=== PATIENT | female | born 1960 | race Caucasian/White ===

== ENCOUNTER 2018-05-28 19:05 | Emergency (ER) | payer OTHER ==
[2018-05-28 19:24] VITALS: RESP 18; TEMP 98.2
--- NOTE | 2018-05-28 20:00 | ED ---
General Adult HPI - General Chief complaint: Abdominal Pain Stated complaint: ABDOMINAL PAIN Source: patient Mode of arrival: ambulatory Limitations: no limitations - History of Present Illness Initial comments: Dictation was produced using Starvine dictation software. please excuse any grammatical, word or spelling errors. Chief Complaint: 57-year-old female past medical history migraines, degenerative disc disease, chronic back pain presents with 1 month of right- sided upper quadrant abdominal pain. History of Present Illness: Patient is a 57-year-old female with no significant comorbidities presents with chief complaint of right upper quadrant abdominal pain 1 month. She states that feels like a sharp pain in the right upper quadrant is worse with stretching. She denies any exacerbations with exertion. Denies any fever, chills or night sweats. No nausea or vomiting. She doesn' t state that eating makes her symptoms worse. No diarrhea. Patient is concerned about her gallbladder. Denies any constitutional symptoms. The ROS documented in this emergency department record has been reviewed and confirmed by me. Those systems with pertinent positive or negative responses have been documented in the HPI. All other systems are other negative and/or noncontributory. - Related Data Home Medications Medication Instructions Recorded Confirmed No Known Home Medications 05/28/18 05/28/18 Allergies Allergy/AdvReac Type Severity Reaction Status Date / Time latex Allergy Swelling Verified 05/28/18 20:19 Penicillins Allergy Swelling Verified 05/28/18 20:19 Review of Systems ROS Statement: Those systems with pertinent positive or pertinent negative responses have been documented in the HPI. ROS Other: All systems not noted in ROS Statement are negative. Past Medical History Additional Past Medical History / Comment(s): migraines, ddd, tinnitus, vaginal hemmorhage, back injury History of Any Multi-Drug Resistant Organisms: None Reported Past Surgical History: Section Additional Past Surgical History / Comment(s): hx of tmj, Past Anesthesia/Blood Transfusion Reactions: No Reported Reaction Past Psychological History: Anxiety, Depression Smoking Status: Former smoker Past Alcohol Use History: Rare Past Drug Use History: None Reported General Exam - General Exam Comments Initial Comments: PHYSICAL EXAM: General Impression: Alert and oriented x3, not in acute distress HEENT: Normocephalic atraumatic, extra-ocular movements intact, pupils equal and reactive to light bilaterally, mucous membranes moist. Cardiovascular: Heart regular rate and rhythm, S1&S2 audible, no murmurs, rubs or gallops Chest: Lungs clear to auscultation bilaterally, no rhonchi, no wheeze, no rales Abdomen: Bowel sounds present, abdomen soft, non-tender, non-distended, no organomegaly, negative Guerin sign, no right lower quadrant tenderness. Musculoskeletal: Pulses present and equal in all extremities, no peripheral edema Motor: Power 5/5 bilaterally, no focal deficits noted Neurological: CN II-XII grossly intact, no focal motor or sensory deficits noted Skin: Intact with no visualized rashes Psych: Normal affect and mood Limitations: no limitations Course Vital Signs 05/28/18 19:21 Temperature 98.2 F Pulse Rate 72 Respiratory 18 Rate Blood Pressure 151/86 O2 Sat by Pulse 96 Oximetry Medical Decision Making - Medical Decision Making ED course: 57-year-old female presents with chief complaint of right upper quadrant abdominal pain. Vital signs upon arrival are within acceptable limits. EKG interpretation: Ventricular rate 72, normal sinus rhythm, UT interval 156, QRS 80, QTC 420. No UT prolongation, no QTC prolongation, no ST. their solar manager T-wave inversions and one in aVL. Patient symptoms however are very atypical. There is very low clinical suspicion is these T-wave changes are acute.Abdomen evaluation obtained. CBC, cumbersome metabolic panel, urinalysis are unremarkable. Lipase is negative. Ultrasound of the abdomen shows no gallbladder pathology. Patient reevaluated and found to be in stable condition. Assurance provided. There is strong clinical suspicion that patient had strained her abdomen causing her symptoms given that is worse with movement. Patient told to follow-up with her primary care physician upon discharge. - Lab Data Result diagrams: 05/28/18 19:48 05/28/18 19:48 Lab Results 05/28/18 05/28/18 05/28/18 Range/Units 19:48 19:48 19:48 WBC 5.5 (3.8-10.6) k/uL RBC 4.51 (3.80-5.40) m/uL Hgb 13.7 (11.4-16.0) gm/dL Hct 41.0 (34.0-46.0) % MCV 91.0 (80.0-100.0) fL MCH 30.4 (25.0-35.0) pg MCHC 33.5 (31.0-37.0) g/dL RDW 13.0 (11.5-15.5) % Plt Count 212 (150-450) k/uL Neutrophils % 61 % Lymphocytes % 26 % Monocytes % 7 % Eosinophils % 3 % Basophils % 1 % Neutrophils # 3.3 (1.3-7.7) k/uL Lymphocytes # 1.4 (1.0-4.8) k/uL Monocytes # 0.4 (0-1.0) k/uL Eosinophils # 0.2 (0-0.7) k/uL Basophils # 0.1 (0-0.2) k/uL Sodium 143 (137-145) mmol/L Potassium 3.8 (3.5-5.1) mmol/L Chloride 109 H (98-107) mmol/L Carbon Dioxide 26 (22-30) mmol/L Anion Gap 8 mmol/L BUN 26 H (7-17) mg/dL Creatinine 0.85 (0.52-1.04) mg/dL Est GFR (CKD-EPI)AfAm 87 (>60 ml/min/1.73 sqM) Est GFR (CKD-EPI)NonAf 76 (>60 ml/min/1.73 sqM) Glucose 102 H (74-99) mg/dL Calcium 9.6 (8.4-10.2) mg/dL Total Bilirubin 0.4 (0.2-1.3) mg/dL AST 23 (14-36) U/L ALT 25 (9-52) U/L Alkaline Phosphatase 81 (38-126) U/L Troponin I <0.012 (0.000-0.034) ng/mL Total Protein 7.1 (6.3-8.2) g/dL Albumin 4.2 (3.5-5.0) g/dL Lipase 139 (23-300) U/L Urine Color Urine Appearance (Clear) Urine pH (5.0-8.0) Ur Specific [place] (1.001-1.035) Urine Protein (Negative) Urine Glucose (UA) (Negative) Urine Ketones (Negative) Urine Blood (Negative) Urine Nitrite (Negative) Urine Bilirubin (Negative) Urine Urobilinogen (<2.0) mg/dL Ur Leukocyte Esterase (Negative) Urine RBC (0-5) /hpf Urine WBC (0-5) /hpf Urine Mucus (None) /hpf 12/06/18 Range/Units 20:18 WBC (3.8-10.6) k/uL RBC (3.80-5.40) m/uL Hgb (11.4-16.0) gm/dL Hct (34.0-46.0) % MCV (80.0-100.0) fL MCH (25.0-35.0) pg MCHC (31.0-37.0) g/dL RDW (11.5-15.5) % Plt Count (150-450) k/uL Neutrophils % % Lymphocytes % % Monocytes % % Eosinophils % % Basophils % % Neutrophils # (1.3-7.7) k/uL Lymphocytes # (1.0-4.8) k/uL Monocytes # (0-1.0) k/uL Eosinophils # (0-0.7) k/uL Basophils # (0-0.2) k/uL Sodium (137-145) mmol/L Potassium (3.5-5.1) mmol/L Chloride (98-107) mmol/L Carbon Dioxide (22-30) mmol/L Anion Gap mmol/L BUN (7-17) mg/dL Creatinine (0.52-1.04) mg/dL Est GFR (CKD-EPI)AfAm (>60 ml/min/1.73 sqM) Est GFR (CKD-EPI)NonAf (>60 ml/min/1.73 sqM) Glucose (74-99) mg/dL Calcium (8.4-10.2) mg/dL Total Bilirubin (0.2-1.3) mg/dL AST (14-36) U/L ALT (9-52) U/L Alkaline Phosphatase (38-126) U/L Troponin I (0.000-0.034) ng/mL Total Protein (6.3-8.2) g/dL Albumin (3.5-5.0) g/dL Lipase (23-300) U/L Urine Color Yellow Urine Appearance Clear (Clear) Urine pH 5.5 (5.0-8.0) Ur Specific [place] 1.022 (1.001-1.035) Urine Protein Negative (Negative) Urine Glucose (UA) Negative (Negative) Urine Ketones Negative (Negative) Urine Blood Negative (Negative) Urine Nitrite Negative (Negative) Urine Bilirubin Negative (Negative) Urine Urobilinogen <2.0 (<2.0) mg/dL Ur Leukocyte Esterase Small H (Negative) Urine RBC 1 (0-5) /hpf Urine WBC 5 (0-5) /hpf Urine Mucus Many H (None) /hpf Disposition Clinical Impression: Abdominal pain Disposition: HOME SELF-CARE Instructions: Abdominal Pain (ED) Is patient prescribed a controlled substance at d/c from ED?: No Referrals: Sherry Simpson MD [Primary Care Provider] - 1-2 days Time of Disposition: 22:02
[2018-05-28 20:06] LABS: Basophils # (A) 0.1 k/uL (0-0.2); Basophils % (A) 1 %; Eosinophils # (A) 0.2 k/uL (0-0.7); Eosinophils % (A) 3 %; HGB 13.7 gm/dL (11.4-16.0); Lymphocytes # (A) 1.4 k/uL (1.0-4.8); Lymphocytes % (A) 26 %; MCH 30.4 pg (25.0-35.0); MCHC 33.5 g/dL (31.0-37.0); Mean Platelet Volume 8.5; Monocytes # (A) 0.4 k/uL (0-1.0); Monocytes % (A) 7 %; Neutrophils # (A) 3.3 k/uL (1.3-7.7); Neutrophils % (A) 61 %; Platelet Count 212 k/uL (150-450); RBC 4.51 m/uL (3.80-5.40); WBC 5.5 k/uL (3.8-10.6)
[2018-05-28 20:16] LABS: Albumin 4.2 g/dL (3.5-5.0); Calcium 9.6 mg/dL (8.4-10.2); Potassium 3.8 mmol/L (3.5-5.1); Total Bilirubin 0.4 mg/dL (0.2-1.3); Total Protein 7.1 g/dL (6.3-8.2)
[2018-05-28 20:35] LABS: Appearance,Urine Clear (Clear); Bilirubin,Urine Negative (Negative); Blood,Urine Negative (Negative); Color,Urine Yellow; Glucose,Urine (UA) Negative (Negative); Ketones,Urine Negative (Negative); Leukocyte Esterase,Urine Small (Negative); Mucus,Urine Many /hpf; Nitrite,Urine Negative (Negative); PH, Urine 5.5 (5.0-8.0); Protein,Urine Negative (Negative); RBC,Urine 1 /hpf (0-5); Specific Gravity,Urine 1.022 (1.001-1.035); Urobilinogen,Urine <2.0 mg/dL (<2.0); WBC,Urine 5 /hpf (0-5)
--- NOTE | 2018-05-28 21:45 | US ---
EXAMINATION TYPE: US abdomen complete DATE OF EXAM: 05/28/2018 COMPARISON: NONE CLINICAL HISTORY: abdominal pain. Pain EXAM MEASUREMENTS: Liver Length: 13.5 cm Gallbladder Wall: 0.3 cm CBD: 0.4 cm Spleen: 7.7 cm Right Kidney: 10.7 x 3.7 x 4.0 cm Left Kidney: 10.3 x 5.6 x 3.1 cm Pancreas: Tail obscured by overlying bowel gas Liver: wnl Gallbladder: wnl Evidence for sonographic Guerin's sign: No CBD: wnl Spleen: Limited due to rib shadowing Right Kidney: wnl Left Kidney: wnl Upper IVC: wnl Abd Aorta: wnl IMPRESSION: No acute sonographic process.
[2018-05-28 22:29] VITALS: BP 115/81; PULSE 88
== END 2018-05-28 22:00 | disposition home or self-care (01) ==
LOC: EC 19:05
DX: R10.11 Right upper quadrant pain (principal); Z87.891 Personal history of nicotine dependence; Z88.0 Allergy status to penicillin; Z91.040 Latex allergy status
CPT/HCPCS: 36415; 76700; 80053; 81001; 83690; 84484; 85025; 93005; 99284

== ENCOUNTER 2018-10-02 07:16 | Emergency (ER) | payer OTHER ==
[2018-10-02 07:30] VITALS: BP 149/82; PULSE 81; TEMP 98
[2018-10-02 07:50] VITALS: RESP 16
--- NOTE | 2018-10-02 07:52 | ED ---
URI HPI - General Chief Complaint: Upper Respiratory Infection Stated Complaint: Congestion Time Seen by Provider: 10/02/18 07:33 Source: patient, RN notes reviewed Mode of arrival: ambulatory Limitations: no limitations - History of Present Illness Initial Comments: This is a 4-year-old female who presents with complaints of 2 days of cough of yellow-green phlegm also sore throat she believes she may have strep. She has had rhinorrhea. She however does state that she's had no fevers chills or sweats. No other complaints or modifying factors she is a former smoker but states she does not smoke anymore. MD Complaint: cough, rhinorrhea, nasal congestion, other - Related Data Home Medications Medication Instructions Recorded Confirmed Naproxen 500 mg PO Q6H PRN 10/02/18 10/02/18 Previous Rx's Medication Instructions Recorded Ibuprofen [Motrin] 600 mg PO Q6HR PRN #20 tab 10/02/18 guaiFENesin [Mucinex] 600 mg PO BID #14 tab.er.12h 10/02/18 Allergies Allergy/AdvReac Type Severity Reaction Status Date / Time latex Allergy Swelling Verified 10/02/18 07:56 Penicillins Allergy Swelling Verified 10/02/18 07:56 Review of Systems ROS Statement: Those systems with pertinent positive or pertinent negative responses have been documented in the HPI. ROS Other: All systems not noted in ROS Statement are negative. Past Medical History Additional Past Medical History / Comment(s): migraines, ddd, tinnitus, vaginal hemmorhage, back injury History of Any Multi-Drug Resistant Organisms: None Reported Past Surgical History: Section Additional Past Surgical History / Comment(s): hx of tmj, Past Anesthesia/Blood Transfusion Reactions: No Reported Reaction Past Psychological History: Anxiety, Depression Smoking Status: Former smoker Past Alcohol Use History: Rare Past Drug Use History: None Reported General Exam - General Exam Comments Initial Comments: This a well-developed well-nourished awake alert oriented 3 female Limitations: no limitations General appearance: alert, in no apparent distress Head exam: Present: atraumatic, normocephalic, normal inspection Eye exam: Present: normal appearance, PERRL, EOMI. Absent: scleral icterus, conjunctival injection, periorbital swelling ENT exam: Present: mucous membranes moist, other (Posterior pharyngeal hyperemia with some evidence of exudate in the right tonsillar pillar) Neck exam: Present: normal inspection, full ROM, other (No stridor JVD or bruits). Absent: tenderness, meningismus, lymphadenopathy Respiratory exam: Present: normal lung sounds bilaterally. Absent: respiratory distress, wheezes, rales, rhonchi, stridor Cardiovascular Exam: Present: regular rate, normal rhythm, normal heart sounds. Absent: systolic murmur, diastolic murmur, rubs, gallop, clicks GI/Abdominal exam: Absent: distended, tenderness, guarding, rebound, rigid Extremities exam: Present: normal inspection, full ROM, normal capillary refill. Absent: tenderness, pedal edema, joint swelling, calf tenderness Back exam: Present: normal inspection Neurological exam: Present: alert, oriented X3, CN II-XII intact Psychiatric exam: Present: normal affect, normal mood Skin exam: Present: warm, dry, intact, normal color. Absent: rash Course Vital Signs 10/02/18 10/02/18 07:26 07:37 Temperature 98.0 F Pulse Rate 81 Respiratory 18 16 Rate Blood Pressure 149/82 O2 Sat by Pulse 95 Oximetry Medical Decision Making - Medical Decision Making I did discuss the findings with the patient the presentation consistent with a viral etiology. She'll be placed on symptomatic care. No antibiotics are indicated at this time - Lab Data Lab Results 10/02/18 10/02/18 Range/Units 07:45 07:45 Influenza Type A RNA Not Detected (Not Detectd) Influenza Type B (PCR) Not Detected (Not Detectd) Group A Strep Rapid Negative (Negative) - Radiology Data Radiology results: report reviewed (I did review the imaging and report no acute findings), image reviewed Disposition Clinical Impression: Pharyngitis, Tracheobronchitis Disposition: HOME SELF-CARE Condition: Good Instructions (If sedation given, give patient instructions): Acute Bronchitis (ED), Pharyngitis (ED), Viral Syndrome (ED) Prescriptions: Ibuprofen [Motrin] 600 mg PO Q6HR PRN #20 tab PRN Reason: Pain guaiFENesin [Mucinex] 600 mg PO BID #14 tab.er.12h Is patient prescribed a controlled substance at d/c from ED?: No Referrals: None,Stated [Primary Care Provider] - 1-2 days
--- NOTE | 2018-10-02 08:07 | XR ---
EXAMINATION TYPE: XR chest 2V DATE OF EXAM: 10/02/2018 COMPARISON: NONE HISTORY: Congestion and sore throat for 2 days TECHNIQUE: Frontal and lateral views of the chest are obtained. FINDINGS: There is no focal air space opacity, pleural effusion, or pneumothorax seen. The cardiac silhouette size is within normal limits. The osseous structures are intact. IMPRESSION: No acute cardiopulmonary process.
== END 2018-10-02 09:09 | disposition home or self-care (01) ==
LOC: EC 07:16
DX: J40 Bronchitis, not specified as acute or chronic (principal); J02.9 Acute pharyngitis, unspecified; Z87.891 Personal history of nicotine dependence; Z88.0 Allergy status to penicillin; Z91.040 Latex allergy status
CPT/HCPCS: 71046; 87081; 87430; 87502; 99283

== ENCOUNTER 2019-06-27 21:26 | Inpatient (IN) | payer MEDICAID, OTHER ==
[2019-06-27] MEDS ORDERED: LORazepam 2 MG/ML INJ IV STA (22:31)
[2019-06-27] MEDS ORDERED: diphenhydrAMINE 50 MG/ML 1 ML VIAL IVP STA (22:43)
--- NOTE | 2019-06-27 22:56 | ED ---
General Adult HPI - General Chief complaint: Skin/Abscess/Foreign Body Stated complaint: Rash Time Seen by Provider: 06/27/19 21:40 Source: patient Mode of arrival: ambulatory Limitations: no limitations - History of Present Illness Initial comments: Zina is a 59-year-old female who presents to the emergency department today for reported evaluation of her rash on her chest. She reports she's had this rash for over a week and has tried treating it with [id number] medications including eczema cream and zinc. Patient states the rash is due to stress. Patient states she is very stressed over her phones being tapped, her phone wires being cut despite the fact that she uses a cell phone. Inability to contact people due to her phone being cut and being told not to speak over her cell phone because it is tapped. Patient states that her people working in her neighborhood to what denies things and action in her neighborhood. She states she is just sick over the stressed about all of this. She attempted to tell me something about the stress over her [place] and [place] and how he was in [place] for a period time she believes something tragic Him in [place] she is not certain what she hasn't spoken to him in a period of time she's concerned about fundamentalist [facility] brainwashing him. - Related Data Home Medications Medication Instructions Recorded Confirmed Naproxen 500 mg PO Q6H PRN 10/02/18 10/02/18 Previous Rx's Medication Instructions Recorded Ibuprofen [Motrin] 600 mg PO Q6HR PRN #20 tab 10/02/18 guaiFENesin [Mucinex] 600 mg PO BID #14 tab.er.12h 10/02/18 Allergies Allergy/AdvReac Type Severity Reaction Status Date / Time latex Allergy Swelling Verified 06/27/19 21:37 Penicillins Allergy Swelling Verified 06/27/19 21:37 Review of Systems ROS Statement: Those systems with pertinent positive or pertinent negative responses have been documented in the HPI. ROS Other: All systems not noted in ROS Statement are negative. Past Medical History Additional Past Medical History / Comment(s): migraines, ddd, tinnitus, vaginal hemmorhage, back injury History of Any Multi-Drug Resistant Organisms: None Reported Past Surgical History: Section Additional Past Surgical History / Comment(s): hx of tmj, Past Anesthesia/Blood Transfusion Reactions: No Reported Reaction Past Psychological History: Anxiety, Depression Smoking Status: Former smoker Past Alcohol Use History: Rare Past Drug Use History: None Reported General Exam - General Exam Comments Initial Comments: Physical Exam GENERAL: Patient is well-developed and well-nourished. Patient is nontoxic and well-hydrated and is in no distress. HENT: Normocephalic, Atraumatic. EYES: PERRL, EOMI PULMONARY: Unlabored respirations. CARDIOVASCULAR: RRR Warm and well perfused extremities ABDOMEN: Non-distended SKIN: Excoriations over the chest consistent with scratching : Deferred NEUROLOGIC: Alert and oriented Normal speech Normal gait MUSCULOSKELETAL: Moving all extremities with no apparent injury PSYCHIATRIC: Patient appears to be acutely psychotic she has rapid pressured speech, flight of ideas some paranoid ideas Limitations: no limitations Course Vital Signs 06/27/19 21:34 Temperature 98 F Pulse Rate 108 H Respiratory 20 Rate Blood Pressure 185/98 O2 Sat by Pulse 97 Oximetry Medical Decision Making - Medical Decision Making She was seen and evaluated, upon initial evaluation it appears the patient is acutely paranoid and psychotic Patient was petitioned by nursing Labs for medical clearance were ordered and patient was treated with topical steroid cream for her rash on her chest Patient did become agitated and attempted to walk out of the hospital however was encouraged that she is going to require inpatient psychiatric evaluation and was able to be redirected back to her room without being restrained though she was quite upset. Patient was evaluated by EPS who agree that the patient warrants inpatient psychiatric care at this time. Patient a answered to the psychiatric floor. - Lab Data Result diagrams: 06/27/19 23:45 06/27/19 23:45 Lab Results 06/27/19 06/27/19 Range/Units 23:45 23:45 WBC 7.2 (3.8-10.6) k/uL RBC 4.19 (3.80-5.40) m/uL Hgb 13.2 (11.4-16.0) gm/dL Hct 39.5 (34.0-46.0) % MCV 94.2 (80.0-100.0) fL MCH 31.5 (25.0-35.0) pg MCHC 33.4 (31.0-37.0) g/dL RDW 13.0 (11.5-15.5) % Plt Count 253 (150-450) k/uL Neutrophils % 50 % Lymphocytes % 33 % Monocytes % 7 % Eosinophils % 6 % Basophils % 1 % Neutrophils # 3.6 (1.3-7.7) k/uL Lymphocytes # 2.4 (1.0-4.8) k/uL Monocytes # 0.5 (0-1.0) k/uL Eosinophils # 0.4 (0-0.7) k/uL Basophils # 0.1 (0-0.2) k/uL Sodium 142 (137-145) mmol/L Potassium 3.4 L (3.5-5.1) mmol/L Chloride 109 H (98-107) mmol/L Carbon Dioxide 23 (22-30) mmol/L Anion Gap 10 mmol/L BUN 20 H (7-17) mg/dL Creatinine 0.90 (0.52-1.04) mg/dL Est GFR (CKD-EPI)AfAm 80 (>60 ml/min/1.73 sqM) Est GFR (CKD-EPI)NonAf 70 (>60 ml/min/1.73 sqM) Glucose 138 H (74-99) mg/dL Calcium 9.6 (8.4-10.2) mg/dL Total Bilirubin 0.4 (0.2-1.3) mg/dL AST 31 (14-36) U/L ALT 19 (4-34) U/L Alkaline Phosphatase 128 H (38-126) U/L Total Protein 7.5 (6.3-8.2) g/dL Albumin 4.6 (3.5-5.0) g/dL Salicylates <1.0 mg/dL Acetaminophen <10.0 ug/mL Serum Alcohol <10 mg/dL Disposition Clinical Impression: Psychosis Disposition: TRANSFER TO PSYCH HOSP/UNIT Condition: Stable Is patient prescribed a controlled substance at d/c from ED?: No
[2019-06-27] MEDS: TRIAMCINOLONE 0.1% CREAM 80 GM TUBE TOPICAL SCH (23:47)
[2019-06-28] LABS: ALT 19 U/L (4-34); AST 31 U/L (14-36); Acetaminophen <10.0 ug/mL; African American GFR (CKD) 80 (>60 ml/min/1.73 sqM); Albumin 4.6 g/dL (3.5-5.0); Alcohol <10 mg/dL; Alkaline Phosphatase 128 U/L (38-126); Anion Gap 10 mmol/L; Blood Urea Nitrogen 20 mg/dL (7-17); Calcium 9.6 mg/dL (8.4-10.2); Carbon Dioxide 23 mmol/L (22-30); Chloride 109 mmol/L (98-107); Glucose 138 mg/dL (74-99); Non-African American GFR(CKD) 70 (>60 ml/min/1.73 sqM); Potassium 3.4 mmol/L (3.5-5.1); Salicylate <1.0 mg/dL; Sodium 142 mmol/L (137-145); Total Bilirubin 0.4 mg/dL (0.2-1.3); Total Protein 7.5 g/dL (6.3-8.2)
[2019-06-28 00:07] LABS: Basophils # (A) 0.1 k/uL (0-0.2); Basophils % (A) 1 %; Eosinophils # (A) 0.4 k/uL (0-0.7); Eosinophils % (A) 6 %; HCT 39.5 % (34.0-46.0); HGB 13.2 gm/dL (11.4-16.0); Lymphocytes # (A) 2.4 k/uL (1.0-4.8); Lymphocytes % (A) 33 %; MCH 31.5 pg (25.0-35.0); MCHC 33.4 g/dL (31.0-37.0); MCV 94.2 fL (80.0-100.0); Mean Platelet Volume 9.1; Monocytes # (A) 0.5 k/uL (0-1.0); Monocytes % (A) 7 %; Neutrophils # (A) 3.6 k/uL (1.3-7.7); Neutrophils % (A) 50 %; Platelet Count 253 k/uL (150-450); RBC 4.19 m/uL (3.80-5.40); WBC 7.2 k/uL (3.8-10.6)
[2019-06-28] MEDS ORDERED: diphenhydrAMINE 50 MG/ML 1 ML VIAL IVP STA (00:10)
[2019-06-28] MEDS ORDERED: ZIPRASIDONE 20 MG VIAL IM PRN (04:48)
[2019-06-28] MEDS ORDERED: LORazepam 2 MG/ML INJ IM PRN (05:51)
[2019-06-28] MEDS: TRIAMCINOLONE 0.1% CREAM 80 GM TUBE TOPICAL SCH ×3 (09:44→22:16)
[2019-06-28] MEDS ORDERED: POTASSIUM CHLORIDE ER 20 MEQ TAB.ER PO STA (16:03)
--- NOTE | 2019-06-28 16:04 | P.CONS ---
History of Present Illness - Reason for Consult Consult date: 06/28/19 - History of Present Illness The patient is a 59 yo F with a PMH of chronic LBP and fibromyalgia presented to the ED w/ complaints of a rash on her chest. She reported minimal improvements in her rash with OTC creams including hydrocortisone. While in the ED, the patient was noted to be paranoid, was petitioned by the nursing staff and was admitted to the mental health unit for further monitoring. The patient was seen in the mental health unit at the bedside earlier today. The patient had significantly pressured speech and was difficult to redirect. She however endorsed this rash on her chest which she believes is linked to her stress. She noted that there is a conspiracy of physicians who are trying to keep her in poverty and that she is simply worried about her son who had traveled to [place] to live with his in-laws and she believes that something terrible is happening to him since she has not heard from them in a while. She noted that rash is somewhat pruritic, but not painful. She otherwise denied chest pain, shortness of breath, nausea, vomiting, fever, chills, abdominal pain, dizziness, or heada ches. Review of Systems Pertinent positives and negatives as discussed in HPI, a complete review of systems was performed and all other systems are negative. Past Medical History Additional Past Medical History / Comment(s): migraines, ddd, tinnitus, vaginal hemmorhage, back injury History of Any Multi-Drug Resistant Organisms: None Reported Past Surgical History: Section Additional Past Surgical History / Comment(s): hx of tmj, Past Anesthesia/Blood Transfusion Reactions: No Reported Reaction Past Psychological History: Anxiety, Depression Smoking Status: Former smoker Past Alcohol Use History: Rare Past Drug Use History: None Reported Medications and Allergies Home Medications Medication Instructions Recorded Confirmed Type Ibuprofen [Motrin] 600 mg PO Q6HR PRN #20 tab 10/02/18 Rx Naproxen 500 mg PO Q6H PRN 10/02/18 10/02/18 History guaiFENesin [Mucinex] 600 mg PO BID #14 tab.er.12h 10/02/18 Rx Allergies Allergy/AdvReac Type Severity Reaction Status Date / Time latex Allergy Swelling Verified 06/27/19 21:37 Penicillins Allergy Swelling Verified 06/27/19 21:37 Physical Exam Vitals: Vital Signs Temp Pulse Resp BP Pulse Ox 06/27/19 21:34 98 F 108 H 20 185/98 97 General: non toxic, no distress, appears at stated age, normal weight Derm: Dry and mildly hyperkeratotic rash overlying patient's chest with some erythematous areas, no unusual ecchymoses, warm, dry Head: atraumatic, normocephalic, symmetric Eyes: EOMI, no lid lag, anicteric sclera, pupils equal round reactive to light ENT: Nose and ears atraumatic, no thrush, no pharyngeal erythema Neck: No thyromegaly, no cervical lymphadenopathy, trachea midline, supple Mouth: no lip lesion, mucus membranes moist Cardiovascular: S1S2 reg, no murmur, positive posterior tibial pulse bilateral, no edema, capillary refill less than 2 seconds Lungs: CTA bilateral, no rhonchi, no rales , no accessory muscle use Abdominal: soft, nontender to palpation, no guarding, no appreciable organomegaly, normal bowel sounds Ext: no gross muscle atrophy, muscle strength 5 out of 5 in all 4 extremities grossly, no contractures, Neuro: CN II-XI grossly intact, light touch intact all 4 extremities, finger to nose within normal limits, Psych: Awake, alert, very pressured speech with flight of ideas and tangentiality, difficult to redirect Results CBC & Chem 7: 06/27/19 23:45 06/27/19 23:45 Labs: Abnormal Lab Results - Last 24 Hours (Table) 06/27/19 Range/Units 23:45 Potassium 3.4 L (3.5-5.1) mmol/L Chloride 109 H (98-107) mmol/L BUN 20 H (7-17) mg/dL Glucose 138 H (74-99) mg/dL Alkaline Phosphatase 128 H (38-126) U/L Assessment and Plan Plan: Rash overlying chest, likely eczematous -Continue with Kenalog cream Psychosis with paranoia -As per psychiatry Hypokalemia -Replace and monitor Hyperglycemia -Obtain A1c Elevated alkaline phosphatase -Unknown etiology -Repeat in a.m. Thank you for allowing us to participate in the care of this patient. We will follow peripherally. Do not hesitate to contact us with questions. Someone can be reached from the [facility] hospitalist group at all hours of the day at [phone].
[2019-06-28] MEDS: LORazepam 1 MG TAB PO PRN (16:59)
[2019-06-29] MEDS: ACETAMINOPHEN TAB 325 MG TAB PO PRN (01:41)
[2019-06-29] MEDS: TRIAMCINOLONE 0.1% CREAM 80 GM TUBE TOPICAL SCH ×2 (08:37→21:59)
--- NOTE | 2019-06-29 15:04 | P.PN ---
Subjective Progress Note Date: 06/29/19 Principal diagnosis: Bipolar disorder manic without psychotic features I reviewed the medical record, interviewed the patient and discussed her treatment and treatment plan during team meeting. I met with her this morning for approximately 60 minutes. She was hyperverbal. Her speech was so pressured that I was unable to interrupt her. She perseverated on several themes but refused to clarify her concerns. She feels that this hospitalization is unnecessary and inappropriate. She contests my diagnosis of bipolar illness and she flatly refused to take a mood stabilizer. She is concerned about her son and her family. When I asked about the circumstances she replied that is is "legal" and none of my business. 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 Objective - Vital Signs Vital signs: Vital Signs Temp 96.9 F L 06/29/19 03:18 Pulse 96 06/29/19 03:18 Resp 16 06/29/19 03:18 BP 136/80 06/29/19 03:18 Pulse Ox 98 06/29/19 03:18 - Exam She presented as a casually groomed thin elderly woman who was irritable and angry. She had a distressed facial expression. She was able sit throughout the interview. Her speech was rapid and at times slurred. Her affect was irritable. She did not express suicidal ideation, wishes or homicidal ideation. She feels helpless over this involuntary hospitalization but denied feelings of worthlessness or hopelessness. She expressed some overvalued ideas and paranoia about her family and her living circumstances. She would jump from topic to topic where I was unable to understand and transition in her conversation. She did not express clang associations or neologisms. She denied hallucinations and did not appear to be responding to internal stimuli - Labs CBC & Chem 7: 06/27/19 23:45 06/27/19 23:45 Assessment and Plan Assessment: She continues demonstrate signs and symptoms of christel and hypomania including pressured speech, flight of ideas, over valued ideas of her talents and paranoia. She has no insight or understanding of her illness and is refusing psychiatric treatment. Plan: Proceed with involuntary hospitalization. Continue safety precautions. Encourage continued participation and multimodal therapy. Evaluate clinical status response to treatment daily basis. Continue discuss of her diagnosis and need for treatment with a mood stabilizer. Continue Ativan and Geodon for anxiety and/or agitation.
[2019-06-29] MEDS: LORazepam 1 MG TAB PO PRN (15:21)
--- NOTE | 2019-06-30 08:01 | P.HP ---
Psychiatric H&P - . H&P Date: 06/28/19 History & Physical: IDENTIFYING DATA: The patient was 59-year-old female admitted involuntarily to the psychiatric unit. HISTORY OF PRESENT ILLNESS: She presented to the emergency room on 06/27/2019 with complaints of a rash. During her evaluation she told the emergency room physician that she was "very stressed" over her phone is being tapped, her phone wires being cut despite the fact that she uses a cell phone. She made other unusual statements and was referred for an evaluation by the EPS nurse. The EPS nurse described her as manic, paranoid and demonstrating pressured speech. An emergency and groomed nurse completed the petition that alleged she was not dressed appropriately for the weather, having paranoid ideations and believes that her phone was "being listened to". She initially refused to speak with me. She told me that she would only speak with her district attorney. Later in the day, she came to my room acutely agitated, angry and complaining about the involuntary admission. Her speech was so pressured, tangential and circumstantial but I could not obtain a comprehensive history. She expressed several paranoid and apparent grandiose ideas and beliefs. She talked about owning multiple cell phones because the phones and her repeatedly being "tapped." She is distressed about her son with whom she has had no contact for an unspecified period of time and in the context of talking about her son also made reference to a "conspiracy". She argued against my opinion that she has a bipolar illness and is currently manic. She declined my recommendation to start a medication to treat her bipolar illness. She alleged that she has been treated with "those medicines" for 8 years without benefit. She would only agree to take a benzodiazepine for her self diagnosed anxiety. PAST PSYCHIATRIC HISTORY: She would not answer questions about her past medical history but alluded to having had [facility]. She had met with a private psychiatrist in the past who had treated her for a bipolar illness. She was admitted to this facility twice in 2014 back to back. The second hospitalization was extensive and lasted nearly 2 months PAST MEDICAL HISTORY: Reported history of back pain and chronic neck pain ALLERGIES: Latex penicillins SUBSTANCE USE HISTORY: She denied history of substance use problems FAMILY PSYCHIATRIC/SUBSTANCE USE HISTORY: She did not answer questions about a family history of mental illness LEGAL HISTORY: She talked about having been involved in multiple legal suits apparently related to her 's estate. SOCIAL HISTORY: She is currently unemployed and receives social security disability. She lives in an apartment in a "bad neighborhood" in [facility]. She talked about having her in several bachelor's degrees and received a master's degree. She is for unspecified time. Her is . 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 MENTAL STATUS EXAM: She presented as a thin and pale appearing 59-year-old female who is irritable. She made eye contact and did not attend to the interview. She had no prominent physical abnormalities. She had a distressed facial expression. She showed no abnormality of psychomotor activity. She had a steady gait. Her speech was spontaneous with increased rate, volume and rhythm. She showed pressured speech she was hyperverbal. Her affect was irritable and labile. She denied suicidal ideation or wishes. She denied homicidal ideation. She did not express such depressive cognitions as hopelessness, helplessness or worthlessness. She ruminated about the circumstances that led to this admission, her financial situation, her son, and her living circumstances. She expressed fragmented paranoid ideation and grandiose beliefs. Her thinking was abstract and associations were at times not fully coherent. She did not demonstrate clang associations or neologisms. She denied hallucinations and did not appear to be responding to internal stimuli. Global impression of intellect is above average. She has no awareness or understanding of her illness or need for mental health treatment. STRENGTHS: Good physical health, stable housing, stable income WEAKNESSES: Lack of family support, lack of understanding of her mental illness IMPRESSION:. She is 59-year-old female who has history of bipolar illness. She presented with signs and symptoms of acute christel. She expresses several fragmented paranoid delusional beliefs and thoughts. She denies that she has a mental illness, denies that she has a bipolar illness and denies need for mental health treatment. She would benefit from continue inpatient treatment that included antimanic medications. She is unwilling to sign voluntary admission. PRINCIPLE DIAGNOSIS: Bipolar disorder most recent episode manic with psychotic features RECOMMENDATION: Continue with inpatient hospitalization. Completed the second clinical certificate and [place] the application was supporting documents to probate Court for involuntary hospitalization. Encourage participation and multimodal therapy. Safety precautions. Continue discussions about need for treatment with mood stabilizing medication. Geodon 20 mg IM twice a day when necessary for agitation or aggression. Ativan 1 mg by mouth 3 times a day when necessary for anxiety or restlessness and Ativan 1 mg IM every 6 hours when necessary for agitation. Allergies Allergy/AdvReac Type Severity Reaction Status Date / Time latex Allergy Swelling Verified 06/27/19 21:37 Penicillins Allergy Swelling Verified 06/27/19 21:37 Vital Signs Temp 98 F 06/27/19 21:34 Pulse 108 H 06/27/19 21:34 Resp 20 06/27/19 21:34 BP 185/98 06/27/19 21:34 Pulse Ox 97 06/27/19 21:34 Intake & Output 06/27/19 06/28/19 06/28/19 18:59 06:59 18:59 Weight 71.305 kg Laboratory Last Values WBC 7.2 k/uL (3.8-10.6) 06/27/19 23:45 RBC 4.19 m/uL (3.80-5.40) 06/27/19 23:45 Hgb 13.2 gm/dL (11.4-16.0) 06/27/19 23:45 Hct 39.5 % (34.0-46.0) 06/27/19 23:45 MCV 94.2 fL (80.0-100.0) 06/27/19 23:45 MCH 31.5 pg (25.0-35.0) 06/27/19 23:45 MCHC 33.4 g/dL (31.0-37.0) 06/27/19 23:45 RDW 13.0 % (11.5-15.5) 06/27/19 23:45 Plt Count 253 k/uL (150-450) 06/27/19 23:45 Neutrophils % 50 % 06/27/19 23:45 Lymphocytes % 33 % 06/27/19 23:45 Monocytes % 7 % 06/27/19 23:45 Eosinophils % 6 % 06/27/19 23:45 Basophils % 1 % 06/27/19 23:45 Neutrophils # 3.6 k/uL (1.3-7.7) 06/27/19 23:45 Lymphocytes # 2.4 k/uL (1.0-4.8) 06/27/19 23:45 Monocytes # 0.5 k/uL (0-1.0) 06/27/19 23:45 Eosinophils # 0.4 k/uL (0-0.7) 06/27/19 23:45 Basophils # 0.1 k/uL (0-0.2) 06/27/19 23:45 Sodium 142 mmol/L (137-145) 06/27/19 23:45 Potassium 3.4 mmol/L (3.5-5.1) L 06/27/19 23:45 Chloride 109 mmol/L (98-107) H 06/27/19 23:45 Carbon Dioxide 23 mmol/L (22-30) 06/27/19 23:45 Anion Gap 10 mmol/L 06/27/19 23:45 BUN 20 mg/dL (7-17) H 06/27/19 23:45 Creatinine 0.90 mg/dL (0.52-1.04) 06/27/19 23:45 Est GFR (CKD-EPI)AfAm 80 (>60 ml/min/1.73 sqM) 06/27/19 23:45 Est GFR (CKD-EPI)NonAf 70 (>60 ml/min/1.73 sqM) 06/27/19 23:45 Glucose 138 mg/dL (74-99) H 06/27/19 23:45 Calcium 9.6 mg/dL (8.4-10.2) 06/27/19 23:45 Total Bilirubin 0.4 mg/dL (0.2-1.3) 06/27/19 23:45 AST 31 U/L (14-36) 06/27/19 23:45 ALT 19 U/L (4-34) 06/27/19 23:45 Alkaline Phosphatase 128 U/L (38-126) H 06/27/19 23:45 Total Protein 7.5 g/dL (6.3-8.2) 06/27/19 23:45 Albumin 4.6 g/dL (3.5-5.0) 06/27/19 23:45 Salicylates <1.0 mg/dL 06/27/19 23:45 Acetaminophen <10.0 ug/mL 06/27/19 23:45 Serum Alcohol <10 mg/dL 06/27/19 23:45 06/28/19 15:26
[2019-06-30] MEDS: TRIAMCINOLONE 0.1% CREAM 80 GM TUBE TOPICAL SCH ×2 (09:02→20:32)
--- NOTE | 2019-06-30 15:38 | P.PN ---
Subjective Progress Note Date: 06/30/19 Principal diagnosis: Bipolar disorder manic without psychotic features I reviewed the medical record, interviewed the patient and discussed her treatment and treatment plan during team meeting. She initially refused to speak with me. Later, she stormed into my office and told me that she "does not want to go over it again with you." There is no reason for her to remain in the hospital. She called her state attorney last night. She stated that she is "furious" and plans to call her insurance company to "cancel my insurance." She attended one therapeutic group yesterday. She slept 5 hours last night and 3 hours on Friday. Objective - Vital Signs Vital signs: Vital Signs Temp 96.9 F L 06/29/19 03:18 Pulse 96 06/29/19 03:18 Resp 16 06/29/19 03:18 BP 136/80 06/29/19 03:18 Pulse Ox 98 06/29/19 03:18 - Exam She presented as a disheveled appearing, thin elderly woman who was irritable and angry. She had a distressed facial expression. She would not sit for an interview Her speech was rapid and pressured. Her affect was irritable. She did not express suicidal ideation, wishes or homicidal ideation. She would jump from topic to topic where I was unable to understand and transition in her conversation. She did not express clang associations or neologisms. She denied hallucinations and did not appear to be responding to internal stimuli - Labs CBC & Chem 7: 06/27/19 23:45 06/27/19 23:45 Assessment and Plan Assessment: She continues demonstrate signs and symptoms of christel and hypomania including pressured speech, flight of ideas, over valued ideas of her talents and paranoia. She has no insight or understanding of her illness and is refusing psychiatric treatment. Plan: Proceed with involuntary hospitalization. Continue safety precautions. Encourage continued participation and multimodal therapy. Evaluate clinical status response to treatment daily basis. Continue discuss of her diagnosis and need for treatment with a mood stabilizer. Continue Ativan and Geodon for anxiety and/or agitation.
[2019-06-30 19:37] LABS: Hemoglobin A1C 5.1 % (4.0-6.0)
[2019-06-30] MEDS: LORazepam 1 MG TAB PO PRN (20:35)
[2019-07-01] MEDS: TRIAMCINOLONE 0.1% CREAM 80 GM TUBE TOPICAL SCH ×2 (08:03→20:56)
[2019-07-01 08:22] LABS: Albumin 4.5 g/dL (3.5-5.0); Calcium 9.7 mg/dL (8.4-10.2); Potassium 4.1 mmol/L (3.5-5.1); Total Bilirubin 0.8 mg/dL (0.2-1.3); Total Protein 7.4 g/dL (6.3-8.2)
[2019-07-01] MEDS: LORazepam 1 MG TAB PO PRN (09:20)
--- NOTE | 2019-07-01 12:31 | P.PN ---
Subjective Progress Note Date: 07/01/19 Principal diagnosis: Bipolar disorder manic without psychotic features I reviewed the medical record, interviewed the patient and discussed her treatment and treatment plan during team meeting. She is much less irritable today. I met with her for approximately 45 minutes. She remains hyperverbal and demonstrates marked flight of ideas. She was circumstantial and tangential. I could not interrupt her. She expressed concerns about her son and talked as though she believes there are some conspiracy by her in-laws to hide a possible illness. I asked several questions to understand but she never directly answered my questions. Her conversation jumped from several topics from her , her in-laws, her son, her past employments, difficulties finding employment, her experiences with [facility], her interactions with friends, legal difficulties, frustration with this hospitalization and conflict with her sister. She remains opposed to treatment with a mood stabilizing medication. Objective - Vital Signs Vital signs: Vital Signs Temp 98.0 F 07/01/19 06:33 Pulse 77 07/01/19 06:33 Resp 14 07/01/19 06:33 BP 141/74 07/01/19 06:33 Pulse Ox 98 06/29/19 03:18 - Exam She presented casually groomed, thin elderly woman who was pleasant. She had a distressed facial expression. Her speech was rapid and pressured. Her affect was irritable. She did not express suicidal ideation, wishes or homicidal ideation. She showed flight of ideas where she would jump from topic to topic where I was unable to understand or thought transition in her conversation. She did not express clang associations or neologisms. She denied hallucinations and did not appear to be responding to internal stimuli - Labs CBC & Chem 7: 06/27/19 23:45 07/01/19 07:30 Labs: Abnormal Lab Results - Last 24 Hours (Table) 07/01/19 Range/Units 07:30 BUN 29 H (7-17) mg/dL Assessment and Plan Assessment: She continues demonstrate signs and symptoms of christel and hypomania including pressured speech, and flight of ideas. Her comments about her and loss suggest some paranoia. She has no insight or understanding of her illness and is refusing psychiatric treatment. Plan: Probate hearing is scheduled for 07/07/2019. Continue safety precautions. Encourage continued participation and multimodal therapy. Evaluate clinical status response to treatment daily basis. Continue discuss of her diagnosis and need for treatment with a mood stabilizer. Continue Ativan and Geodon for anxiety and/or agitation.
[2019-07-02] MEDS: TRIAMCINOLONE 0.1% CREAM 80 GM TUBE TOPICAL SCH ×2 (10:47→20:02)
--- NOTE | 2019-07-02 14:09 | P.PN ---
Subjective Progress Note Date: 07/02/19 Principal diagnosis: Bipolar disorder manic without psychotic features I reviewed the medical record, interviewed the patient and discussed her treatment and treatment plan during team meeting. She initially approached be with upper respiratory complaints. She spent 40 minutes in my office talking nonstop. 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 She became increasingly angry and ended the interview telling me that she is enraged with me because I will not discharge her and insisted on her taking medications. She does not agree with my impression that she has a bipolar illness. She remains opposed to treatment with a mood stabilizing medication. Objective - Vital Signs Vital signs: Vital Signs Temp 98.0 F 07/01/19 06:33 Pulse 77 07/01/19 06:33 Resp 14 07/01/19 06:33 BP 141/74 07/01/19 06:33 Pulse Ox 98 06/29/19 03:18 - Exam She presented casually groomed, thin elderly woman who was pleasant. She had a distressed facial expression. Her speech was rapid and pressured. Her affect was irritable. She did not express suicidal ideation, wishes or homicidal ideation. She showed flight of ideas where she would jump from topic to topic w here I was unable to understand or thought transition in her conversation. She was circumstantial her answers to questions were tangential and digressive. She did not express clang associations or neologisms. She denied hallucinations and did not appear to be responding to internal stimuli - Labs CBC & Chem 7: 06/27/19 23:45 07/01/19 07:30 Assessment and Plan Assessment: She continues demonstrate signs and symptoms of christel and hypomania including pressured speech, and flight of ideas. She would benefit from a mood stabilizing medication either a second generation antipsychotic, Depakote, lithium or Lamictal. She has no insight or understanding of her illness and is refusing psychiatric treatment. Plan: Probate hearing is scheduled for 07/07/2019. Continue safety precautions. Encourage continued participation and multimodal therapy. Evaluate clinical status response to treatment daily basis. Continue discuss of her diagnosis and need for treatment with a mood stabilizer. Continue Ativan and Geodon for anxiety and/or agitation.
[2019-07-03] MEDS: TRIAMCINOLONE 0.1% CREAM 80 GM TUBE TOPICAL SCH ×3 (08:54→20:40)
[2019-07-03] MEDS: guaiFENesin 600 MG TABLET.ER PO PRN (11:11)
[2019-07-03] MEDS: LORazepam 1 MG TAB PO PRN ×2 (11:20→20:42)
--- NOTE | 2019-07-03 11:37 | P.PN ---
Progress Note - Text Progress Note Date: 07/03/19 Interval history: [facility] her At[facility] and was directable and agreeable to speak to her in the office. Patient continues to be hyperverbal, tangential and intrusive and displaying flight of ideas and also grandiosity in her statements. She spoke about being in the "inadequate place for treatment" and threatened to call the house superintendent and also to pull her insurance so that the hospital would not get paid. Patient spoke about being in research studies and how other doctors felt that she was "normal" and she did not need to be on medication. She states that she slept to the night with no complaints and has been going to groups however does not elaborate much on this. Patient is difficult to redirect in conversation and has poor judgment and insight. At this time patient denies any suicidal or homicidal ideations intent or plan. Denies any Auditory or visual hallucinations. patient refuses to be on any mood stabilizer or antipsychotic at this time. Mental status exam: General Appearance: Patient appears to be stated age is alert, directable ho wever patient is intrusive and argumentative.] wearing street clothing and carrying a book. Behavior: [No agitated behavior. Patient is directable however is argumentative and hostile with advertising copy writer. Speech: Patient's speech is fluent however is pressured. Mood/Affect: Mood is "fine", affect is incongruent and labile Suicidality/Homicidality: Patient denies having any suicidal or homicidal ideation intent or plan. Perceptions: Patient denies any auditory or visual hallucinations. Though content/process:flight of ideas, rambles and is tangential with loose associations. Memory and concentration: AOX3, grossly intact for the purposes of this session Judgment and insight: poor Assessment/Plan: continue with current assessment. Patient is labile, intrusive and grandiose and has poor judgment and insight and has a flight of ideas and hyperverbal and most likely in a manic episode. Patient continues to meet criteria for inpatient psychiatric admission for symptom stabilization and safety. patient is continuing to refuse any mood stabilizer or antipsychotic medication at this time and wants to wait for Court which is scheduled on 07/07/2019. Monitor for medication compliance and for any psychotropic medication side effects. Will continue to monitor ongoing response to treatment. encourage groups and participation in milieu.
[2019-07-04] MEDS: TRIAMCINOLONE 0.1% CREAM 80 GM TUBE TOPICAL SCH ×2 (08:00→21:07)
[2019-07-04] MEDS: LORazepam 1 MG TAB PO PRN ×2 (09:01→21:08)
[2019-07-04] MEDS: MAG HYDROX/AL HYDROX/SIMETH 30 ML CUP PO PRN (09:21)
--- NOTE | 2019-07-04 11:53 | P.PN ---
Progress Note - Text Progress Note Date: 07/04/19 Interval history: patient was seen near the nurse's desk and was directable and agreeable to speak to her in the office. Patient continues to be hyperverbal, tangential and intrusive. Patient was continuing to be loud and demanding with chief underwriter and has a flight of ideas and also grandiosity in her statements. She spoke of speaking with a "cash shortage investigator and the staff pharmacist hospital" and also states that chief underwriter is "running a residential". She states that she is agreeable only to take a low dose antidepressant and is not agreeable to take any other medications. Patient was offered Abilify however patient continues to refuse. She has poor reality testing and is impulsive. 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 She states that she slept to the night with no complaints. Patient is difficult to redirect in conversation and has poor judgment and insight and patient refused to leave the office and continued to yell at chief underwriter and make threatening statements. At this time patient denies any suicidal or homicidal ideations intent or plan. Denies any Auditory or visual hallucinations. Mental status exam: General Appearance: Patient appears to be stated age is alert, is intrusive and argumentative and hostile. wearing street clothing and carrying a book. Behavior: No agitated behavior. Patient is difficult to redirect however is argumentative and hostile with chief underwriter. Patient is intrusive and demanding. Speech: Patient's speech is fluent however is pressured. Mood/Affect: Mood is "fine", affect is incongruent and labile Suicidality/Homicidality: Patient denies having any suicidal or homicidal ideation intent or plan. Perceptions: Patient denies any auditory or visual hallucinations. Though content/process:flight of ideas, rambles and is tangential with loose associations. Memory and concentration: AOX3, grossly intact for the purposes of this session Judgment and insight: poor Assessment/Plan: continue with current assessment. Patient is continuing to be labile, demanding, intrusive and grandiose and has poor judgment and insight and has a flight of ideas and hyperverbal and most likely in a manic episode. Patient continues to meet criteria for inpatient psychiatric admission for symp sagrario stabilization and safety. patient is continuing to refuse any mood stabilizer or antipsychotic medication at this time and wants to wait for Court which is scheduled on 07/07/2019. Ordered Abilify 5 mg daily for mood stabilization/psychosis. Encouraged patient to take the medication and participate in milieu. Monitor for medication compliance and for any psychotropic medication side effects.
[2019-07-04] MEDS: ARIPiprazole 5 MG TAB PO SCH (14:41)
[2019-07-05] MEDS: TRIAMCINOLONE 0.1% CREAM 80 GM TUBE TOPICAL SCH ×2 (08:55→21:48)
[2019-07-05] MEDS: ARIPiprazole 5 MG TAB PO SCH (08:55)
--- NOTE | 2019-07-05 09:52 | P.PN ---
Subjective Progress Note Date: 07/05/19 The patient seen in the chart was reviewed. The case was discussed with the team. Patient continues to be labile and hyperverbal. The patient reports good sleep and appetite. She claims that she has no problems. The patient reports that "hysteria" brought her to the hospital and claims that has improved now. The patient continues to refuse medications and is asking for "a third opinion". Patient was offered Abilify however patient continues to refuse. She has poor reality testing and is impulsive. 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 She states that she slept to the night with no complaints. Patient is difficult to redirect in conversation and has poor judgment and insight and patient refused to leave the office and continued to yell at science writer and make threatening statements. At this time patient denies any suicidal or homicidal ideations intent or plan. Denies any Auditory or visual hallucinations. Objective - Vital Signs Vital signs: Vital Signs Temp 97.7 F 07/05/19 05:18 Pulse 78 07/05/19 05:18 Resp 16 07/05/19 05:18 BP 116/78 07/05/19 05:18 Pulse Ox 98 06/29/19 03:18 Intake & Output 07/04/19 07/05/19 07/05/19 18:59 06:59 18:59 Weight 68 kg - Exam Mental status exam: General Appearance: Patient appears to be stated age, she is alert. Behavior: No agitated behavior. Patient is difficult to redirect. Patient is intrusive and demanding. Speech: Patient's speech is fluent however is pressured and rapid. Mood/Affect: Mood is "fine", affect is incongruent and labile Suicidality/Homicidality: Patient denies having any suicidal or homicidal ideation intent or plan. Perceptions: Patient denies any auditory or visual hallucinations. Though content/process:flight of ideas, rambles and is tangential with loose associations. Memory and concentration: AOX3, grossly intact for the purposes of this session Judgment and insight: poor - Labs CBC & Chem 7: 06/27/19 23:45 07/01/19 07:30 Assessment and Plan Assessment: Bipolar disorder most recent episode manic with psychotic features Plan: Assessment/Plan: continue with current assessment. Patient is continuing to be labile, demanding, intrusive and grandiose and has poor judgment and insight and has a flight of ideas and hyperverbal and most likely in a manic episode. Patient continues to meet criteria for inpatient psychiatric admission for symptom stabilization and safety. patient is continuing to refuse any mood stabilizer or antipsychotic medication at this time and wants to wait for Court which is scheduled on 07/07/2019. Ordered Abilify 5 mg daily for mood stabilization/psychosis. Encouraged patient to take the medication and participate in milieu. Monitor for medication compliance and for any psychotropic medication side effects.
[2019-07-05] MEDS: LORazepam 1 MG TAB PO PRN (14:47)
[2019-07-06] MEDS: TRIAMCINOLONE 0.1% CREAM 80 GM TUBE TOPICAL SCH ×2 (08:44→21:03)
[2019-07-06] MEDS: ARIPiprazole 5 MG TAB PO SCH (08:45)
[2019-07-06 09:18] LABS: Basophils # (A) 0.1 k/uL (0-0.2); Basophils % (A) 1 %; Eosinophils # (A) 0.3 k/uL (0-0.7); Eosinophils % (A) 7 %; HCT 39.6 % (34.0-46.0); Lymphocytes # (A) 1.5 k/uL (1.0-4.8); Lymphocytes % (A) 37 %; MCH 31.1 pg (25.0-35.0); MCV 94.2 fL (80.0-100.0); Mean Platelet Volume 9.5; Monocytes # (A) 0.3 k/uL (0-1.0); Monocytes % (A) 6 %; Neutrophils # (A) 1.8 k/uL (1.3-7.7); Neutrophils % (A) 44 %; Platelet Count 210 k/uL (150-450); RDW 12.9 % (11.5-15.5); WBC 4.1 k/uL (3.8-10.6)
[2019-07-06 09:37] LABS: ALT 18 U/L (4-34); AST 25 U/L (14-36); African American GFR (CKD) >90 (>60 ml/min/1.73 sqM); Albumin 4.2 g/dL (3.5-5.0); Alkaline Phosphatase 79 U/L (38-126); Anion Gap 7 mmol/L; Blood Urea Nitrogen 19 mg/dL (7-17); Calcium 9.3 mg/dL (8.4-10.2); Carbon Dioxide 29 mmol/L (22-30); Chloride 106 mmol/L (98-107); Glucose 78 mg/dL (74-99); Non-African American GFR(CKD) 85 (>60 ml/min/1.73 sqM); Potassium 4.3 mmol/L (3.5-5.1); Sodium 142 mmol/L (137-145); Total Bilirubin 0.5 mg/dL (0.2-1.3); Total Protein 7.1 g/dL (6.3-8.2)
[2019-07-06] MEDS: LORazepam 1 MG TAB PO PRN ×2 (10:02→18:46)
--- NOTE | 2019-07-06 12:15 | P.PN ---
Subjective Progress Note Date: 07/06/19 The patient seen in the chart was reviewed. The case was discussed with the team. Patient continues to be paranoid and somewhat confused. Her speech remain hyperverbal and circumstantial. The patient reports good sleep and appetite. She claims that she has no problems and shows lack of insight into her illness. She is somatically focussed and paranoid. She is refusing her medications. She remain somewhat grandiose and persecutory. The patient continues to refuse medications and is asking for "a third opinion". Patient was offered Abilify however patient continues to refuse. She has poor reality testing and is impulsive. 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 Patient is difficult to redirect in conversation and has poor judgment and insight. At this time patient denies any suicidal or homicidal ideations intent or plan. Denies any Auditory or visual hallucinations. Objective - Vital Signs Vital signs: Vital Signs Temp 97.8 F 07/06/19 04:51 Pulse 77 07/06/19 09:15 Resp 16 07/06/19 09:15 BP 151/82 07/06/19 09:15 Pulse Ox 99 07/06/19 04:51 - Exam Mental status exam: General Appearance: Patient appears to be stated age, she is alert. Behavior: No agitated behavior. Patient is difficult to redirect. Patient is intrusive and demanding. Speech: Patient's speech is fluent however is pressured and rapid. Mood/Affect: Mood is "fine", affect is incongruent and labile Suicidality/Homicidality: Patient denies having any suicidal or homicidal ideation intent or plan. Perceptions: Patient denies any auditory or visual hallucinations. Though content/process:flight of ideas, rambles and is tangential with loose associations. Memory and concentration: AOX3, grossly intact for the purposes of this session Judgment and insight: poor - Labs CBC & Chem 7: 07/06/19 08:45 07/06/19 08:45 Labs: Abnormal Lab Results - Last 24 Hours (Table) 07/06/19 Range/Units 08:45 BUN 19 H (7-17) mg/dL Assessment and Plan Assessment: Bipolar disorder most recent episode manic with psychotic features Plan: Assessment/Plan: continue with current assessment. Patient is continuing to be labile, demanding, intrusive and grandiose and has poor judgment and insight and has a flight of ideas and hyperverbal and most likely in a manic episode. Patient continues to meet criteria for inpatient psychiatric admission for sym ptom stabilization and safety. patient is continuing to refuse any mood stabilizer or antipsychotic medication at this time and wants to wait for Court which is scheduled on 07/07/2019. Ordered Abilify 5 mg daily for mood stabilization/psychosis. Encouraged patient to take the medication and partic ipate in milieu. Monitor for medication compliance and for any psychotropic medication side effects.
[2019-07-06] MEDS: MAG HYDROX/AL HYDROX/SIMETH 30 ML CUP PO PRN (21:05)
[2019-07-07] MEDS: ARIPiprazole 5 MG TAB PO SCH (07:50)
[2019-07-07] MEDS: TRIAMCINOLONE 0.1% CREAM 80 GM TUBE TOPICAL SCH ×2 (07:50→20:12)
[2019-07-07] MEDS: LORazepam 1 MG TAB PO PRN ×2 (08:57→20:13)
--- NOTE | 2019-07-07 12:06 | P.PN ---
Subjective Progress Note Date: 07/07/19 The patient seen in the chart was reviewed. The case was discussed with the staff in the team meeting. The patient remained grandiose and paranoid. She has been alleging that she has worked in local "I decide why people are not getting better". The patient is a has been refusing medications. She has been asking for Ativan. The patient remains hyperverbal and has rambling and tangential speech which is difficult to redirect. The patient reports fair sleep and appetite. The patient denies any auditory or visual hallucinations but appears to be very preoccupied and somewhat argumentative. The patient denies any suicidal or homicidal ideations. The patient's court hearing was adjourn today by the court. Objective - Vital Signs Vital signs: Vital Signs Temp 97.8 F 07/06/19 04:51 Pulse 101 H 07/07/19 08:55 Resp 16 07/06/19 09:15 BP 153/90 07/07/19 08:55 Pulse Ox 99 07/06/19 04:51 Intake & Output 07/06/19 07/07/19 07/07/19 18:59 06:59 18:59 Weight 68 kg - Exam Mental status exam: General Appearance: Patient appears to be stated age, she is alert. Behavior: No agitated behavior. Patient is difficult to redirect. Patient is intrusive and demanding. Speech: Patient's speech is fluent however is pressured and rapid. Mood/Affect: Mood is "fine", affect is incongruent and labile Suicidality/Homicidality: Patient denies having any suicidal or homicidal ideation intent or plan. Perceptions: Patient denies any auditory or visual hallucinations. Though content/process:flight of ideas, rambles and is tangential with loose associations. Memory and concentration: AOX3, grossly intact for the purposes of this session Judgment and insight: poor - Labs CBC & Chem 7: 07/06/19 08:45 07/06/19 08:45 Assessment and Plan Assessment: Bipolar disorder most recent episode manic with psychotic features Plan: Assessment: Continue with current assessment. Patient continues to meet criteria for inpatient psychiatric admission for symptom stabilization and safety. The patient continues to refuse any mood stabilizer or antipsychotic medication at this time. The court date was at [place] today. Awaiting the next court date.
[2019-07-08] MEDS: MAGNESIUM HYDROXIDE 2,400 MG/10 ML CUP PO PRN (04:24)
[2019-07-08] MEDS: TRIAMCINOLONE 0.1% CREAM 80 GM TUBE TOPICAL SCH ×2 (09:43→19:43)
[2019-07-08] MEDS: ARIPiprazole 5 MG TAB PO SCH (09:45)
--- NOTE | 2019-07-08 12:14 | P.PN ---
Subjective Progress Note Date: 07/08/19 Patient seen in the chart was reviewed. The case was discussed with the staff and team meeting. The patient remain grandiose and delusional. She continues to be hyperverbal with rambling and tangential speech. 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 The patient remained somatically focused. The patient is not able to answer questions appropriately. Objective - Vital Signs Vital signs: Vital Signs Temp 98.1 F 07/08/19 04:27 Pulse 62 07/08/19 04:27 Resp 16 07/08/19 04:27 BP 117/74 07/08/19 04:27 Pulse Ox 99 07/06/19 04:51 - Exam Mental status exam: General Appearance: Patient appears to be stated age, she is alert. Behavior: No agitated behavior. Patient is difficult to redirect. Patient is intrusive and demanding. Speech: Patient's speech is fluent however is pressured and rapid. Mood/Affect: Mood is "fine", affect is incongruent and labile Suicidality/Homicidality: Patient denies having any suicidal or homicidal ideation intent or plan. Perceptions: Patient denies any auditory or visual hallucinations. Though content/process:flight of ideas, rambles and is tangential with loose associations. Memory and concentration: AOX3, grossly intact for the purposes of this session Judgment and insight: poor - Labs CBC & Chem 7: 07/06/19 08:45 07/06/19 08:45 Assessment and Plan Assessment: Bipolar disorder most recent episode manic with psychotic features Plan: Assessment: Continue with current assessment. Patient continues to meet criteria for inpatient psychiatric admission for symptom stabilization and safety. The patient continues to refuse any mood stabilizer or antipsychotic medication at this time. Awaiting court hearing regarding the commitment. Encourage compliance. Continue to monitor closely.
[2019-07-08] MEDS: LORazepam 1 MG TAB PO PRN (19:42)
[2019-07-09] MEDS: ARIPiprazole 5 MG TAB PO SCH (08:54)
[2019-07-09] MEDS: TRIAMCINOLONE 0.1% CREAM 80 GM TUBE TOPICAL SCH ×2 (08:55→22:02)
--- NOTE | 2019-07-09 10:52 | P.PN ---
Subjective Progress Note Date: 07/09/19 The patient seen and chart was reviewed. The case was discussed with the staff on the unit. The patient remained confused and paranoid. She remained grandiose and delusional. The patient continues to refuse any antipsychotics. The patient remains hyperverbal with rambling and tangential speech. The patient complains of feeling anxious and reports having "hysteria". The patient is not able to answer questions appropriately. The patient denies any auditory or visual hallucinations. She denies any active suicidal or homicidal ideations. Objective - Vital Signs Vital signs: Vital Signs Temp 98.1 F 07/08/19 04:27 Pulse 108 H 07/09/19 08:57 Resp 20 07/09/19 08:57 BP 146/87 07/09/19 08:57 Pulse Ox 97 07/09/19 08:57 - Exam Mental status exam: General Appearance: Patient appears to be stated age, she is alert. Behavior: No agitated behavior. Patient is difficult to redirect. Patient is intrusive and demanding. Speech: Patient's speech is fluent however is pressured and rapid. Mood/Affect: Mood is "fine", affect is incongruent and labile Suicidality/Homicidality: Patient denies having any suicidal or homicidal ideation intent or plan. Perceptions: Patient denies any auditory or visual hallucinations. Though content/process:flight of ideas, rambles and is tangential with loose associations. Memory and concentration: AOX3, grossly intact for the purposes of this session Judgment and insight: poor - Labs CBC & Chem 7: 07/06/19 08:45 07/06/19 08:45 Assessment and Plan Assessment: Bipolar disorder most recent episode manic with psychotic features Plan: Assessment: Continue with current assessment. Patient continues to meet criteria for inpatient psychiatric admission for symptom stabilization and safety. The patient continues to refuse any mood stabilizer or antipsychotic medication at this time. Awaiting court hearing regarding the commitment. Encourage compliance. Continue to monitor closely.
[2019-07-09] MEDS: guaiFENesin 600 MG TABLET.ER PO PRN (12:16)
[2019-07-09] MEDS: LORazepam 1 MG TAB PO PRN (13:49)
[2019-07-09] MEDS: ACETAMINOPHEN TAB 325 MG TAB PO PRN (14:57)
[2019-07-10] MEDS: TRIAMCINOLONE 0.1% CREAM 80 GM TUBE TOPICAL SCH ×2 (08:18→21:41)
[2019-07-10] MEDS: ARIPiprazole 5 MG TAB PO SCH (08:21)
[2019-07-10] MEDS: LORazepam 1 MG TAB PO PRN (10:03)
[2019-07-10] MEDS: guaiFENesin 600 MG TABLET.ER PO PRN (10:03)
[2019-07-10] MEDS: MAG HYDROX/AL HYDROX/SIMETH 30 ML CUP PO PRN (13:55)
--- NOTE | 2019-07-10 20:33 | P.PN ---
Progress Note - Text Progress Note Date: 07/10/19 Interval history: Patient is seen in cross coverage today. She had just met during visiting With a male friend prior to us meeting. She reports that she is not taking the Abilify as prescribed. She describes frustration about being in the hospital still. It appears as though she still has a court hearing pending. Mental status exam: She is alert and cooperative with the interview. Her speech is fluent, rapid and pressured. She describes her mood as "frustrated." She does not verbalize any thoughts of harm to self or others. She does not show any significant agitation. Plan: Patient will be continued to be monitored regarding her status and we will monitor for any medication side effects if she is taking the psychotropic medication. She does seem perhaps agreeable to initiate alternative mood stabilizer medication but we discussed her discussing this further with her primary psychiatrist. We'll continue to discuss medication options with the patient tomorrow.
[2019-07-11] MEDS: TRIAMCINOLONE 0.1% CREAM 80 GM TUBE TOPICAL SCH ×2 (09:56→22:15)
[2019-07-11] MEDS: ARIPiprazole 5 MG TAB PO SCH ×2 (09:57→11:05)
[2019-07-11] MEDS: LORazepam 1 MG TAB PO PRN (10:00)
[2019-07-11] MEDS: ACETAMINOPHEN TAB 325 MG TAB PO PRN (14:41)
--- NOTE | 2019-07-11 15:32 | P.PN ---
Progress Note - Text Progress Note Date: 07/11/19 Interval history: Patient seen in [facility] today. She says she took the Abilify this morning and has been feeling tired all day and also had a migraine. We did discuss at length that the scheduling of Abilify could be changed to bedtime which she does not seem agreeable to. Mental status exam: She is alert and cooperative with the interview but she does leave the session on her own accord. She her speech is fluent somewhat rapid and pressured at times. Her mood she describes as ""I don't have a mood." She does not verbalize any thoughts of harm to self or others. She makes reference to wanting neuropsych testing. She makes several references to money related to medical care. Plan: Patient will be maintained on current treatment regimen. We'll monitor for side effects. I did discuss that Abilify could be changed to bedtime which she does not seem agreeable to. I did discuss with her that she can talk further about psychotropic medications to her primary psychiatrist. Continue to monitor her ongoing response to treatment.
[2019-07-12] MEDS: ACETAMINOPHEN TAB 325 MG TAB PO PRN (03:04)
[2019-07-12] MEDS: TRIAMCINOLONE 0.1% CREAM 80 GM TUBE TOPICAL SCH ×2 (09:17→22:31)
[2019-07-12] MEDS: ARIPiprazole 5 MG TAB PO SCH (09:17)
--- NOTE | 2019-07-12 13:41 | P.PN ---
Subjective Progress Note Date: 07/12/19 The patient seen and chart was reviewed. The case was discussed with the staff on the unit. The patient remained confused and paranoid. She remained grandiose and delusional. The patient continues to refuse any antipsychotics but has been taking Abilify for last couple of days. The patient remains hy perverbal with rambling and tangential speech. The patient was tearful during the session and talked about being into a [employer] culture. The patient complains of feeling anxious and reports having "hysteria". The patient is not able to answer questions appropriately. The patient denies any auditory or visual hallucinations. She denies any active suicidal or homicidal ideations. She is demanding and KEENAN. Objective - Vital Signs Vital signs: Vital Signs Temp 98.0 F 07/12/19 06:56 Pulse 101 H 07/12/19 06:56 Resp 17 07/12/19 06:56 BP 102/72 07/12/19 06:56 Pulse Ox 99 07/12/19 06:56 - Exam Mental status exam: General Appearance: Patient appears to be stated age, she is alert. Behavior: No agitated behavior. Patient is difficult to redirect. Patient is intrusive and demanding. Speech: Patient's speech is fluent however is pressured and rapid. Mood/Affect: Mood is "OK", affect is incongruent and labile Suicidality/Homicidality: Patient denies having any suicidal or homicidal ideation intent or plan. Perceptions: Patient denies any auditory or visual hallucinations. Though content/process:flight of ideas, rambles and is tangential with loose associations. Memory and concentration: AOX3, grossly intact for the purposes of this session Judgment and insight: poor - Labs CBC & Chem 7: 07/06/19 08:45 07/06/19 08:45 Assessment and Plan Assessment: Bipolar disorder most recent episode manic with psychotic features Plan: Assessment: Continue with current assessment. Patient continues to meet criteria for inpatient psychiatric admission for symptom stabilization and safety. Increase Abilify 5 mg PO bid. Awaiting court hearing regarding the commitment. Encourage compliance. Continue to monitor closely.
[2019-07-12] MEDS: LORazepam 1 MG TAB PO PRN (14:27)
[2019-07-13] MEDS: ARIPiprazole 5 MG TAB PO SCH (09:10)
[2019-07-13] MEDS: TRIAMCINOLONE 0.1% CREAM 80 GM TUBE TOPICAL SCH ×2 (09:10→21:19)
--- NOTE | 2019-07-13 12:15 | P.PN ---
Subjective Progress Note Date: 07/13/19 The patient was seen in the chart was reviewed. The case was discussed with the staff on the unit in the team meeting. The patient met with the [facility] today. The patient has been more compliant with the treatment. She has been compliant with the medications and has been tolerating it without any side effects at this time. The patient reports fair sleep and appetite. She denies any auditory or visual hallucinations. Her speech remained tangential but is redirectable. The patient is able to focus a little better for a short time. She denies any suicidal or homicidal ideations at this time. The patient denies any side effects on the medications. Discussed the possibility of Abilify maintain him. The patient is refusing at this time. Objective - Vital Signs Vital signs: Vital Signs Temp 98.0 F 07/12/19 06:56 Pulse 95 07/12/19 14:25 Resp 17 07/12/19 06:56 BP 155/73 07/12/19 14:25 Pulse Ox 99 07/12/19 06:56 - Exam Mental status exam: General Appearance: Patient appears to be stated age, she is alert. Behavior: No agitated behavior. Patient is difficult to redirect. Patient is intrusive and demanding. Speech: Patient's speech is fluent however is pressured and rapid. Mood/Affect: Mood is "OK", affect is incongruent and labile Suicidality/Homicidality: Patient denies having any suicidal or homicidal ideation intent or plan. Perceptions: Patient denies any auditory or visual hallucinations. Though content/process:flight of ideas, rambles and is tangential with loose associations. Memory and concentration: AOX3, grossly intact for the purposes of this session Judgment and insight: poor - Labs CBC & Chem 7: 07/06/19 08:45 07/06/19 08:45 Assessment and Plan Assessment: Bipolar disorder most recent episode manic with psychotic features Plan: Assessment: Continue with current assessment. Patient continues to meet criteria for inpatient psychiatric admission for symptom stabilization and safety. Increase Abilify 5 mg PO bid. Awaiting court hearing regarding the commitment. Encourage compliance. Continue to monitor closely.
[2019-07-13] MEDS ORDERED: SODIUM CHLORIDE 0.65% NASAL SPRAY 44 ML BTL NASAL PRN (12:37)
[2019-07-13] MEDS: LORazepam 1 MG TAB PO PRN (16:25)
[2019-07-14] MEDS: ARIPiprazole 5 MG TAB PO SCH (08:10)
[2019-07-14] MEDS: TRIAMCINOLONE 0.1% CREAM 80 GM TUBE TOPICAL SCH ×2 (08:10→21:24)
[2019-07-14] MEDS: LORazepam 1 MG TAB PO PRN (12:12)
[2019-07-14] MEDS ORDERED: ARIPiprazole IM 400 MG VIAL (NO COST) IM ONE (13:00)
--- NOTE | 2019-07-14 13:00 | P.PN ---
Subjective Progress Note Date: 07/14/19 The patient seen in the chart was reviewed. The case was discussed with staff and the team meeting. The patient reports doing okay but continues to show labile mood and circumstantial speech. The patient goes on rambling and tach tangent but is a little more redirectable. The patient believes that the medications are working well for her. She'll remain grandiose and and defensive. The patient attends milieu therapy. The patient has been cooperative and compliant with the medications at this time. The patient reports fair sleep and appetite. She is superficially pleasant and cooperative during the interview. She remains hyperverbal. She shows no agitation at this time. The patient denies any auditory or visual hallucinations she denies any active suicidal or homicidal ideations at this time. The patient denies any side effects on the medications. Objective - Vital Signs Vital signs: Vital Signs Temp 97.4 F L 07/14/19 06:53 Pulse 71 07/14/19 06:53 Resp 18 07/14/19 06:53 BP 118/79 07/14/19 06:53 Pulse Ox 99 07/12/19 06:56 - Exam Mental status exam: General Appearance: Patient appears to be stated age, she is alert. Behavior: No agitated behavior. Patient is difficult to redirect. Patient is intrusive and demanding. Speech: Patient's speech is fluent however is pressured and rapid. Mood/Affect: Mood is "OK", affect is incongruent and labile Suicidality/Homicidality: Patient denies having any suicidal or homicidal ideation intent or plan. Perceptions: Patient denies any auditory or visual hallucinations. Though content/process:flight of ideas, rambles and is tangential with loose associations. Memory and concentration: AOX3, grossly intact for the purposes of this session Judgment and insight: poor - Labs CBC & Chem 7: 07/06/19 08:45 07/06/19 08:45 Assessment and Plan Assessment: Bipolar disorder most recent episode manic with psychotic features Plan: Assessment: Continue with current assessment. Patient continues to meet criteria for inpatient psychiatric admission for symptom stabilization and safety. Continue Abilify 5 mg PO bid. Start Abilify Maintenna 400 mg IM q monthly. Encourage compliance. Continue to monitor closely.
[2019-07-14] MEDS ORDERED: ARIPiprazole IM SYRINGE 400 MG (NO CHARGE) IM ONE (13:15)
[2019-07-14] MEDS: guaiFENesin 600 MG TABLET.ER PO PRN (16:01)
[2019-07-14] MEDS: BENZOCAINE/MENTHOL LOZENG 1 EACH LOZENGE MUCOUS MEM PRN (16:01)
[2019-07-15] MEDS: MAG HYDROX/AL HYDROX/SIMETH 30 ML CUP PO PRN (05:46)
[2019-07-15] MEDS: TRIAMCINOLONE 0.1% CREAM 80 GM TUBE TOPICAL SCH ×2 (08:36→21:51)
[2019-07-15] MEDS: ARIPiprazole 5 MG TAB PO SCH (08:36)
--- NOTE | 2019-07-15 12:03 | P.PN ---
Subjective Progress Note Date: 07/15/19 The patient was seen in the chart was reviewed. The patient case was discussed with staff and team meeting. The patient reports feeling better but complains of feeling a little tired today. The patient complained of poor sleep but attributed it to the noises and disturbance on the unit last night. The patient remained hyperverbal but is more redirectable. The patient has been more compliant with the treatment. The patient attends and participates in milieu therapy. The patient remained somatically focused but is redirectable. The patient denies any auditory or visual hallucinations. She denies any active suicidal homicidal ideation but remained grandiose and somewhat paranoid. The patient received Abilify maintenna 400 mg yesterday and was able to tolerate it without any significant problems. Objective - Vital Signs Vital signs: Vital Signs Temp 97.7 F 07/15/19 05:48 Pulse 74 07/15/19 05:48 Resp 14 07/15/19 05:48 BP 131/80 07/15/19 05:48 Pulse Ox 99 07/12/19 06:56 - Exam Mental status exam: General Appearance: Patient appears to be stated age, she is alert. Behavior: No agitated behavior. Patient is difficult to redirect. Patient is intrusive and demanding. Speech: Patient's speech is fluent however is pressured and rapid. Mood/Affect: Mood is "Its accurate", affect is incongruent and labile Suicidality/Homicidality: Patient denies having any suicidal or homicidal ideation intent or plan. Perceptions: Patient denies any auditory or visual hallucinations. Though content/process:flight of ideas, rambles and is tangential with loose associations. Memory and concentration: AOX3, grossly intact for the purposes of this session Judgment and insight: poor - Labs CBC & Chem 7: 07/06/19 08:45 07/06/19 08:45 Assessment and Plan Assessment: Bipolar disorder most recent episode manic with psychotic features Plan: Assessment: Continue with current assessment. Patient continues to meet criteria for inpatient psychiatric admission for symptom stabilization and safety. Continue Abilify 5 mg PO bid. Continue Abilify Maintenna 400 mg IM q monthly. Encourage compliance. Continue to monitor closely.
[2019-07-15] MEDS: LORazepam 1 MG TAB PO PRN (15:29)
[2019-07-15] MEDS: MAGNESIUM HYDROXIDE 2,400 MG/10 ML CUP PO PRN (21:51)
[2019-07-16] MEDS: TRIAMCINOLONE 0.1% CREAM 80 GM TUBE TOPICAL SCH ×2 (08:27→19:00)
[2019-07-16] MEDS: ARIPiprazole 5 MG TAB PO SCH (08:59)
[2019-07-16] MEDS: LORazepam 1 MG TAB PO PRN (09:00)
--- NOTE | 2019-07-16 13:04 | P.PN ---
Subjective Progress Note Date: 07/16/19 The patient was seen in the chart was reviewed. The patient case was discussed with staff and team meeting. The patient reports not feeling well today. She complained of poor sleep last night because of upset stomach, nausea and vomiting. The patient is somatically focused and complains of not feeling well. The patient reports poor appetite. The patient has been more compliant with the treatment. The patient attends and participates in milieu therapy. The patient denies any auditory or visual hallucinations. She denies any active suicidal homicidal ideation but remained grandiose and somewhat paranoid. The patient is able to tolerate medication without any significant problems. Objective - Vital Signs Vital signs: Vital Signs Temp 99.2 F 07/16/19 06:03 Pulse 104 H 07/16/19 08:55 Resp 18 07/16/19 08:55 BP 117/59 07/16/19 08:55 Pulse Ox 99 07/12/19 06:56 - Exam Mental status exam: General Appearance: Patient appears to be stated age, she is alert. Behavior: No agitated behavior. Patient is difficult to redirect. Patient is intrusive and demanding. Speech: Patient's speech is fluent however is pressured and rapid. Mood/Affect: Mood is "okay", affect appropriate Suicidality/Homicidality: Patient denies having any suicidal or homicidal ideation intent or plan. Perceptions: Patient denies any auditory or visual hallucinations. Though content/process:no flight of ideas or delusional thinking. Memory and concentration: AOX3, grossly intact for the purposes of this session Judgment and insight: poor - Labs CBC & Chem 7: 07/06/19 08:45 07/06/19 08:45 Assessment and Plan Assessment: Bipolar disorder most recent episode manic with psychotic features Plan: Assessment: Continue with current assessment. Patient continues to meet criteria for inpatient psychiatric admission for symptom stabilization and safety. The concept internal medicine regarding GI upset. Continue Abilify 5 mg PO bid. Continue Abilify Maintenna 400 mg IM q monthly. Encourage compliance. Continue to monitor closely.
[2019-07-16] MEDS: ACETAMINOPHEN TAB 325 MG TAB PO PRN (15:36)
[2019-07-16] MEDS ORDERED: CALCIUM CARBONATE 500 MG CHEWABLE PO PRN (17:20)
[2019-07-16] MEDS ORDERED: ONDANSETRON ODT 4 MG TAB PO PRN (17:22)
--- NOTE | 2019-07-16 17:23 | P.PN ---
Subjective Progress Note Date: 07/16/19 Principal diagnosis: Nausea and vomiting Patient was seen and examined. No acute events overnight. Patient reports one episode of nausea and vomiting about 2 hours last night after eating chicken strips. She also complains of "twinge-like"left upper quadrant abdominal pain. Patient also reports symptoms of heartburn. She was able to tolerate ensure clear this morning but has not had any solid food. Patient states "I could feel acid". Patient reports previous history of H. pylori which was treated with antibiotics. She denies any chest pain, shortness of breath or palpitations. No fever or chills. She does report increasing anxiety due to her home situation. Objective - Vital Signs Vital signs: Vital Signs Temp 99.2 F 07/16/19 06:03 Pulse 104 H 07/16/19 08:55 Resp 18 07/16/19 08:55 BP 117/59 07/16/19 08:55 Pulse Ox 99 07/12/19 06:56 - Exam General: [non toxic], [no distress], [appears at stated age] Derm: [warm], [dry] Head: [atraumatic], [normocephalic], [symmetric] Eyes: [EOMI], [no lid lag], [anicteric sclera] Mouth: [no lip lesion], [mucus membranes moist] Cardiovascular: [S1S2 reg], [no murmur] Lungs: [CTA bilateral], [no rhonchi, no rales] , [no accessory muscle use] Abdominal: [soft], [ nontender to palpation], [no guarding], [no appreciable organomegaly] Ext: [no gross muscle atrophy], [no edema], [no contractures] Neuro: [no focal neuro deficits] Psych: [Alert], [oriented], [appropriate affect] - Labs CBC & Chem 7: 07/06/19 08:45 07/06/19 08:45 Assessment and Plan Assessment: Nausea and vomiting with abdominal pain Likely related to anxiety. She does have a history of heartburn. States that she was treated for H. pylori in the past. Her abdominal pain likely related to muscular strain during forceful vomiting. Plans: Add Tums as needed for heartburn. Start Pepcid daily. Zofran as needed for nausea or vomiting.
[2019-07-16] MEDS: FAMOTIDINE 20 MG TAB PO SCH (18:59)
[2019-07-17] MEDS: ARIPiprazole 5 MG TAB PO SCH (08:29)
[2019-07-17] MEDS: TRIAMCINOLONE 0.1% CREAM 80 GM TUBE TOPICAL SCH ×2 (08:29→21:18)
[2019-07-17] MEDS: FAMOTIDINE 20 MG TAB PO SCH (08:29)
--- NOTE | 2019-07-17 09:59 | P.PN ---
Progress Note - Text Interval history: The patient is found in her room she follows me to an interview room. The patient has been admitted now for numerous days with a diagnosis of bipolar disorder. She is being treated with oral Abilify and apparently has received an injection of Abilify maintena. She states that things are fine and she'll say which she needs to so that she can be discharged soon. It appears she'll he slept 4 hours last evening. She indicates she had some trouble sleeping last night due to disturbance is caused by another patient. Staff report that the patient has been improving over the last week in terms of her manic symptoms. Mental status exam: The patient is alert she is dressed in her own clothing she is carrying a book. Eye contact is appropriate speech is fluent spontaneous. She is pressured at times. She first is sarcastic and indicates she'll say what she needs to say to be discharged. As the session progresses she becomes more somatically preoccupied discussing concerns about a rash etc. She reports no suicidal or homicidal thoughts. She is endorsing no auditory or visual hallucinations or any specific delusions. Thought process can be circumstantial and tangential at times she can be linear with some direct questioning. She demonstrates no verbal or physical aggressiveness she demonstrates no involuntary repetitive movements. Insight and judgment likely improved but limited. Plan: The patient will continue on her current psychotropic medication. We will monitor for safety and encourage participation milieu staff feel the patient has been improving. Vital signs reviewed.
[2019-07-17] MEDS: MAGNESIUM HYDROXIDE 2,400 MG/10 ML CUP PO PRN (21:20)
[2019-07-18] MEDS: BENZOCAINE/MENTHOL LOZENG 1 EACH LOZENGE MUCOUS MEM PRN (05:50)
[2019-07-18] MEDS: TRIAMCINOLONE 0.1% CREAM 80 GM TUBE TOPICAL SCH ×2 (09:04→22:16)
[2019-07-18] MEDS: FAMOTIDINE 20 MG TAB PO SCH (09:04)
[2019-07-18] MEDS: ARIPiprazole 5 MG TAB PO SCH (09:05)
--- NOTE | 2019-07-18 11:25 | P.PN ---
Progress Note - Text Interval history: The patient is found in the hallway she follows me to an interview room. She spent several minutes discussing symptoms that she's had over the years and symptoms that she is experiencing now. She has several questions related to her psychotropic medication. Those questions were addressed. She indicates having some difficulty with sleeping and states that she normally takes melatonin at home. She has been trying to attend group activities. Appetite stable. Mental status exam: The patient is alert she is much more cooperative today. There was no sarcasm used. She was more able to demonstrate her intellect during this conversation. Thought process was more organized than yesterday. She was circumstantial at times but no obvious tangential thinking or loose associations. She was easily directable. She reports no suicidal or homicidal ideation intent or plan. She is reporting no auditory or visual hallucinations. She demonstrated improved insight compared to yesterday. She remains oriented to person place and date. She demonstrates no verbal or physical aggressiveness she demonstrates no involuntary repetitive movements. Plan: The patient will continue on her current psychotropic medications. She has received the Abilify maintena injection and remains on the oral dose of Abilify 5 mg daily. I will add melatonin 3 mg at bedtime. Is encouraged to continue participating in the milieu. We will monitor her for safety. Vital signs reviewed.
[2019-07-18] MEDS: LORazepam 1 MG TAB PO PRN (16:54)
[2019-07-18] MEDS: MELATONIN 3 MG TABLET PO SCH (22:16)
[2019-07-18] MEDS: MAGNESIUM HYDROXIDE 2,400 MG/10 ML CUP PO PRN (22:17)
[2019-07-19] MEDS: TRIAMCINOLONE 0.1% CREAM 80 GM TUBE TOPICAL SCH ×2 (08:19→20:56)
[2019-07-19] MEDS: FAMOTIDINE 20 MG TAB PO SCH (08:19)
[2019-07-19] MEDS: ARIPiprazole 5 MG TAB PO SCH (08:19)
[2019-07-19] MEDS: ACETAMINOPHEN TAB 325 MG TAB PO PRN (14:21)
--- NOTE | 2019-07-19 15:00 | P.PN ---
Subjective Progress Note Date: 07/19/19 Principal diagnosis: Bipolar disorder manic without psychotic features I reviewed the medical record, interviewed the patient and discussed her treatment and treatment plan during team meeting. She inquired about discharge and talk about her "stubbornness" regarding her involuntary treatment order. The unit staff are aware her desire to be discharged and have counseled her to defer the probate hearing. She was unwilling to sign a deferment and is now waiting a "second opinion". She has been compliant with Abilify 5 mg daily and accepted an injection of Abilify maintaining a 400 mg on 07/14/2019. She was not distressed and did not perseverate as she had during our initial meetings. Objective - Vital Signs Vital signs: Vital Signs Temp 97.9 F 07/19/19 02:45 Pulse 89 07/19/19 02:45 Resp 14 07/19/19 02:45 BP 108/75 07/19/19 02:45 Pulse Ox 99 07/12/19 06:56 Intake & Output 07/18/19 07/19/19 07/19/19 18:59 06:59 18:59 Weight 67.6 kg - Exam She was casually groomed, pleasant and cooperative. She made eye contact and attended to interview. She was not irritable and her mood was stable and appropriate. She did not demonstrate pressured speech or flight of ideas. - Labs CBC & Chem 7: 07/06/19 08:45 07/06/19 08:45 Assessment and Plan Assessment: She is much improved from admission and does not demonstrate overt signs of christel or hypomania. She is compliant with prescribed psychotropic medication but is unwilling to agree to a different apartment of the probate hearing. Plan: The probate hearing was postponed pending the completion of her request for a "second opinion". Continue safety precautions. Continue Abilify 5 mg daily. Evaluate clinical status response to treatment daily basis. Continue to discuss the benefits of deferring the probate hearing. Continue Ativan and Geodon for anxiety and/or agitation.
[2019-07-19] MEDS: MELATONIN 3 MG TABLET PO SCH (19:53)
[2019-07-20] MEDS: FAMOTIDINE 20 MG TAB PO SCH (08:31)
[2019-07-20] MEDS: TRIAMCINOLONE 0.1% CREAM 80 GM TUBE TOPICAL SCH ×2 (08:31→21:40)
[2019-07-20] MEDS: ARIPiprazole 5 MG TAB PO SCH (08:31)
[2019-07-20] MEDS: MAG HYDROX/AL HYDROX/SIMETH 30 ML CUP PO PRN ×2 (09:55→23:22)
[2019-07-20] MEDS: LORazepam 1 MG TAB PO PRN (12:19)
[2019-07-20 15:45] VITALS: BMI 23.3
[2019-07-20] MEDS ORDERED: traZODone HCL 50 MG TAB PO PRN (16:06)
--- NOTE | 2019-07-20 16:08 | P.PN ---
Subjective Progress Note Date: 07/20/19 Principal diagnosis: Bipolar disorder manic without psychotic features I reviewed the medical record, interviewed the patient and discussed her treatment and treatment plan during team meeting. She met with her court- appointed title attorney on 07/19/2019 and waving stipulated to her treatment order. She also went to her request for an independent medical evaluation. We spoke with the court airport representative will explain that she may be discharge when she is clinically sociable and the overlay plastician will enter a order retroactively during her July scheduled for but hearing. During our interview she expressed her frustration with her continued hospitalization and her encounters with her title attorney and the probate Court. She talked about wishing to receive treatment to a private provider rather than to [facility]. She plans to follow-up with Dr. Marcos in [facility]. She complained of difficulty falling asleep. We discussed options and agreed to a trial of trazodone beginning at 50 mg at bedtime. Objective - Vital Signs Vital signs: Vital Signs Temp 97.9 F 07/20/19 03:27 Pulse 74 07/20/19 03:27 Resp 14 07/20/19 03:27 BP 109/61 07/20/19 03:27 Pulse Ox 99 07/12/19 06:56 Intake & Output 07/19/19 07/20/19 07/20/19 18:59 06:59 18:59 Weight 67.6 kg - Exam She was casually groomed, pleasant and cooperative. She made eye contact and attended to interview. She was not irritable and her mood was stable and appropriate. She did not demonstrate pressured speech or flight of ideas. - Labs CBC & Chem 7: 07/06/19 08:45 07/06/19 08:45 Assessment and Plan Assessment: She is much improved from admission and does not demonstrate overt signs of christel or hypomania. She is compliant with prescribed psychotropic medication and has stipulated to a treatment order. Plan: Plan for discharge on 07/21/2019. Continue safety precautions. Continue Abilify 5 mg daily. Evaluate clinical status response to treatment daily basis. Continue to discuss the benefits of deferring the probate hearing. Social work to coordinate discharge and aftercare services. Continue Ativan and Geodon for anxiety and/or agitation.
[2019-07-20] MEDS: MELATONIN 3 MG TABLET PO SCH ×2 (21:40→23:22)
[2019-07-21] MEDS: FAMOTIDINE 20 MG TAB PO SCH (08:55)
[2019-07-21] MEDS: ARIPiprazole 5 MG TAB PO SCH (08:55)
[2019-07-21] MEDS: TRIAMCINOLONE 0.1% CREAM 80 GM TUBE TOPICAL SCH ×2 (08:56→20:42)
[2019-07-21] MEDS: LORazepam 1 MG TAB PO PRN (12:25)
--- NOTE | 2019-07-21 16:18 | P.PN ---
Subjective Progress Note Date: 07/21/19 Principal diagnosis: Bipolar disorder manic without psychotic features I reviewed the medical record, interviewed the patient and discussed her treatment and treatment plan during team meeting. She complained that the trazodone made her feel irritable and angry. She requested to restart her outpatient dose of topiramate for the treatment of chronic migraines. She plans to continue the Abilify as prescribed. She met with the social services director and coordinated aftercare plan. She initially made with [facility] who will manage her outpatient treatment order then transfer her care to the private psychiatrist. She remains skeptical of her diagnosis and we had made a fairly lengthy discussion about whether or not she met full criteria for a manic episode. She concedes that she had pressured speech and was angry but denied other symptoms of christel and specifically denied that she demonstrated flight of ideas or paranoia. Objective - Vital Signs Vital signs: Vital Signs Temp 97.8 F 07/21/19 03:55 Pulse 85 07/21/19 12:20 Resp 16 07/21/19 03:55 BP 132/65 07/21/19 12:20 Pulse Ox 99 07/21/19 03:55 Intake & Output 07/20/19 07/21/19 07/21/19 18:59 06:59 18:59 Weight 67.6 kg - Exam She was casually groomed, pleasant and cooperative. She made eye contact and attended to interview. She was not irritable and her mood was stable and appropriate. Her speech was fast but not pressured. She did not demonstrate flight of ideas. Her thinking was abstract, logical and goal directed. - Labs CBC & Chem 7: 07/06/19 08:45 07/06/19 08:45 Assessment and Plan Assessment: She is much improved from admission and does not demonstrate overt signs of christel or hypomania. She is compliant with prescribed psychotropic medication and has stipulated to a treatment order. Plan: Plan for discharge on 07/22/2019. Continue safety precautions. Restart Topamax 25 mg by mouth twice a day. Continue Abilify 5 mg daily. Evaluate clinical status response to treatment daily basis. Continue Ativan and Geodon for anxiety and/or agitation.
[2019-07-21] MEDS: TOPIRAMATE 25 MG TAB PO SCH (20:43)
[2019-07-21] MEDS: MELATONIN 3 MG TABLET PO SCH (20:43)
[2019-07-21] MEDS: MAG HYDROX/AL HYDROX/SIMETH 30 ML CUP PO PRN (23:29)
[2019-07-22 06:56] VITALS: BP 109/63; PULSE 62; RESP 18; TEMP 98.4
[2019-07-22] MEDS: ARIPiprazole 5 MG TAB PO SCH (07:57)
[2019-07-22] MEDS: FAMOTIDINE 20 MG TAB PO SCH (07:57)
[2019-07-22] MEDS: TOPIRAMATE 25 MG TAB PO SCH (07:58)
[2019-07-22] MEDS: TRIAMCINOLONE 0.1% CREAM 80 GM TUBE TOPICAL SCH (07:58)
--- NOTE | 2019-07-22 14:08 | P.DS ---
Providers Date of admission: 06/28/19 04:44 Attending physician: Filipe Barrera MD Consults: 06/28/19 04:48 Consult Physician Routine Consulting Provider: Marya Bob Consult Reason/Comments: New admission H&P Do you want consulting provider notified?: Yes 07/16/19 14:52 Consult Physician Routine Consulting Provider: Gretchen Mathew Consult Reason/Comments: abdominal pain, nausea and vomiting. Do you want consulting provider notified?: Yes Primary care physician: Stated None - Discharge Diagnosis(es) (1) Bipolar disorder, most recent episode hypomanic Current Visit: Yes Status: Acute Hospital Course: She is a 59-year-old female admitted to the psychiatric unit involuntarily. She presented to emergency room on 06/27/2019 with complaint of a rash on her chest. 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 She made other unusual statements and was referred for an evaluation by EPS nurse. Thought nurse described as manic, paranoid and demonstrating pressured speech. During the psychiatric evaluation and she was guarded and suspicious. She provided little information about herself or past psychiatric history. She lives revealed that she had been treated for bipolar illness and had one prior psychiatric hospitalization. We admitted her to the psychiatric unit under the care of this com writer. We will provide a copy his a biopsychosocial assessment. The senior energy consultant laydown machine operator completed initial physical exam and medical history and diagnosed a restaurant her chest, hypokalemia, hyperglycemia and elevated alkaline phosphatase. The senior energy consultant recommended potassium supplement, a repeat of the alkaline phosphatase and hemoglobin A1c. The serum potassium, serum glucose and alkaline phosphatase normal eyes. Hemoglobin A1c was 5.1 (normal). She refused initially to take psychotropic medications. During her probate hearing she requested an independent evaluation. When she realized that her hospitalization would be extended substantially to accommodate her request of an independent evaluation she agreed to start a mood stabilizer and stipulate to the involuntary order. We started Abilify 5 mg daily administered without injection of Abilify Maintenna 400 mg. She denied side effects to the medication. Her christel gradually declined. However, she continued to complain of insomnia and was only sleeping from 2-4 hours per night. At the time of discharge she presented as a casually groomed 59-year-old female who was pleasant on approach. She made eye contact and attended the interview. She had a saucedo facial expression. She was alert and oriented to person, place and time. Her speech was rapid but not pressured. She did not demonstrate flight of ideas. She did not express paranoid ideation. She denied suicidality or homicidality. She did not express ideas reference or delusional thoughts. Her thinking was abstract and associations were coherent and logical. She did not demonstrate clang association, perseveration or neologisms. She denied hallucinations and did not appear to be responding to internal stimuli. Patient Condition at Discharge: Stable Plan - Discharge Summary New Discharge Prescriptions: New ARIPiprazole [Abilify] 5 mg PO DAILY 30 Days #30 tab Triamcinolone 0.1% Cream [Kenalog 0.1% Cream] 1 applic TOPICAL BID 30 Days #1 applic Melatonin 3 mg PO HS 30 Days #30 tablet Famotidine [Pepcid] 20 mg PO DAILY 30 Days #30 tab Topiramate [Topamax] 25 mg PO BID 30 Days #60 tab Continue Ibuprofen [Motrin] 600 mg PO Q6HR PRN #20 tab PRN Reason: Pain guaiFENesin [Mucinex] 600 mg PO BID #14 tab.er.12h Discontinued Naproxen 500 mg PO Q6H PRN PRN Reason: Pain Discharge Medication List Ibuprofen [Motrin] 600 mg PO Q6HR PRN #20 tab 10/02/18 [Rx] guaiFENesin [Mucinex] 600 mg PO BID #14 tab.er.12h 10/02/18 [Rx] ARIPiprazole [Abilify] 5 mg PO DAILY 30 Days #30 tab 07/22/19 [Rx] Famotidine [Pepcid] 20 mg PO DAILY 30 Days #30 tab 07/22/19 [Rx] Melatonin 3 mg PO HS 30 Days #30 tablet 07/22/19 [Rx] Topiramate [Topamax] 25 mg PO BID 30 Days #60 tab 07/22/19 [Rx] Triamcinolone 0.1% Cream [Kenalog 0.1% Cream] 1 applic TOPICAL BID 30 Days #1 applic 07/22/19 [Rx] Follow up Appointment(s)/Referral(s): [facility] [Outside] - 07/27/19 10:30 am (Walk In Intake 07/27/2019 10:30- 5:00 pm) [facility] [NON-STAFF] - 1 Week Patient Instructions/Handouts: Depression (DC), Psychotic Disorder (DC) Activity/Diet/Wound Care/Special Instructions: Activity and diet as tolerated. Avoid the use of street drugs and alcohol. Take all medications as prescribed. When you are in need of refills on your medications please contact your medical provider and/or outpatient psychiatrist to have this done. Please go to scheduled outpatient appointment for aftercare treatment. If symptoms return or become worse, call the crisis line at and/or go to the nearest emergency room for evaluation. Discharge Disposition: HOME SELF-CARE Plan of Treatment: Continue with oral Abilify until her next injection of Abilify Anastacia
== END 2019-07-22 15:10 | disposition home or self-care (01) | DRG 885 ==
LOC: EC 21:26 → 3MHU 06-28 04:44
PROVIDERS: ADMIT Psychiatry & Neurology Psychiatry; ATTEND Psychiatry & Neurology Psychiatry
DX: F31.2 Bipolar disorder, current episode manic severe with psychotic features (principal); G43.909 Migraine, unspecified, not intractable, without status migrainosus; F06.4 Anxiety disorder due to known physiological condition; L29.9 Pruritus, unspecified; M79.7 Fibromyalgia; Z79.899 Other long term (current) drug therapy; Z86.19 Personal history of other infectious and parasitic diseases; Z87.891 Personal history of nicotine dependence; F41.9 Anxiety disorder, unspecified; R45.1 Restlessness and agitation; Z56.0 Unemployment, unspecified; E87.6 Hypokalemia; R73.9 Hyperglycemia, unspecified; Z88.0 Allergy status to penicillin; Z91.040 Latex allergy status; G89.29 Other chronic pain; M54.5 Low back pain; R74.8 Abnormal levels of other serum enzymes
CPT/HCPCS: 36415; 80053; 80320; 80329; 82075; 83036; 83520; 85025; 96374; 96375; 99284

== ENCOUNTER 2019-11-10 17:26 | Inpatient (IN) | payer MEDICAID, OTHER ==
--- NOTE | 2019-11-10 18:11 | ED ---
General Adult HPI - General Source: patient, RN notes reviewed, old records reviewed Mode of arrival: ambulatory Limitations: no limitations <Ernie Mesa - Last Filed: 11/10/19 21:05> <Odilon Vela - Last Filed: 11/11/19 04:29> - General Chief complaint: Psychiatric Symptoms Stated complaint: Petition Time Seen by Provider: 11/10/19 17:30 - History of Present Illness Initial comments: This is a 59-year-old female presents to the emergency department in the custody of the police. Police stated that they had a court order to pick her up. Police state that she did not indicate to them any reason that she thought she needed to have petition done. I spoke with the patient she has no idea why mirandab nelson would've petitioned her to come in. She states she's under the care of her primary medical care doctor and has been taking the medications that he has prescribed. Patient denies any recent illness patient denies any cough patient denies any chest pain difficulty breathing shortest breath. Patient states she does not know why she is here she hopes someone can figure it out. (Ernie Mesa) - Related Data Home Medications Medication Instructions Recorded Confirmed Albuterol Inhaler [Ventolin Hfa 2 puff INHALATION RT-Q4H PRN 11/10/19 11/10/19 Inhaler] Escitalopram [Lexapro] 5 mg PO DAILY 11/10/19 11/10/19 Estradiol Cream [Estrace Cream 1 gm VAGINAL MOWEFR 11/10/19 11/10/19 0.01%] SUMAtriptan SUCCINATE [Imitrex] 50 mg PO DAILY PRN MDD 200MG 11/10/19 11/10/19 Topiramate [Topamax] 50 mg PO BID 11/10/19 11/10/19 Allergies Allergy/AdvReac Type Severity Reaction Status Date / Time latex Allergy Swelling Verified 11/10/19 18:55 Penicillins Allergy Swelling Verified 11/10/19 18:55 Review of Systems ROS Other: All systems not noted in ROS Statement are negative. <Ernie Mesa - Last Filed: 11/10/19 21:05> ROS Other: All systems not noted in ROS Statement are negative. <Odilon Vela - Last Filed: 11/11/19 04:29> ROS Statement: Those systems with pertinent positive or pertinent negative responses have been documented in the HPI. Past Medical History Additional Past Medical History / Comment(s): migraines, ddd, tinnitus, vaginal hemmorhage, back injury History of Any Multi-Drug Resistant Organisms: None Reported Past Surgical History: Section Additional Past Surgical History / Comment(s): hx of tmj, Past Anesthesia/Blood Transfusion Reactions: No Reported Reaction Past Psychological History: Anxiety, Depression Smoking Status: Former smoker Past Alcohol Use History: Rare Past Drug Use History: None Reported <Ernie Mesa - Last Filed: 11/10/19 21:05> General Exam Limitations: no limitations <Ernie Mesa - Last Filed: 11/10/19 21:05> - General Exam Comments Initial Comments: GENERAL: Patient is well-developed and well-nourished. Patient is nontoxic and well- hydrated and is in no acute distress. ENT: Neck is soft and supple. No significant lymphadenopathy is noted. Oropharynx is clear. Moist mucous membranes. Neck has full range of motion without eliciting any pain. EYES: The sclera were anicteric and conjunctiva were pink and moist. Extraocular movements were intact and pupils were equal round and reactive to light. Eyelids were unremarkable. PULMONARY: Unlabored respirations. Good breath sounds bilaterally. No audible rales rhonchi or wheezing was noted. CARDIOVASCULAR: There is a regular rate and rhythm without any murmurs gallops or rubs. ABDOMEN: Soft and nontender with normal bowel sounds SKIN: Skin is clear with no lesions or rashes and otherwise unremarkable. NEUROLOGIC: Patient is alert and oriented x3. Cranial nerves II through XII are grossly intact. Motor and sensory are also intact. Normal speech, volume and content. Symmetrical smile. MUSCULOSKELETAL: Normal extremities with adequate strength and full range of motion. PSYCHIATRIC: Patient is a little hyperverbal and upset. Patient denies any suicidal homicidal ideations. Patient denies any hallucinations or delusions. (Ernie Mesa) Course Vital Signs 11/10/19 17:27 Temperature 98.1 F Pulse Rate 115 H Respiratory 18 Rate Blood Pressure 187/114 O2 Sat by Pulse 100 Oximetry Medical Decision Making <Ernie Mesa - Last Filed: 11/10/19 21:05> - Medical Decision Making EPS evaluated the patient and determined the patient needed to be admitted. (Ernie Mesa) - Lab Data Lab Results 11/10/19 Range/Units 20:53 Urine Opiates Screen Not Detected (NotDetected) Ur Oxycodone Screen Not Detected (NotDetected) Urine Methadone Screen Not Detected (NotDetected) Ur Propoxyphene Screen Not Detected (NotDetected) Ur Barbiturates Screen Not Detected (NotDetected) U Tricyclic Antidepress Not Detected (NotDetected) Ur Phencyclidine Scrn Not Detected (NotDetected) Ur Amphetamines Screen Not Detected (NotDetected) U Methamphetamines Scrn Not Detected (NotDetected) U Benzodiazepines Scrn Not Detected (NotDetected) Urine Cocaine Screen Not Detected (NotDetected) U Marijuana (THC) Screen Not Detected (NotDetected) Disposition Time of Disposition: 21:06 <Ernie Mesa - Last Filed: 11/10/19 21:05> <Odilon Vela - Last Filed: 11/11/19 04:29> Clinical Impression: Noncompliance with medications, Bipolar disorder Disposition: ADMITTED IP TO THIS [facility] Condition: Fair Referrals: None,Stated [Primary Care Provider] - 1-2 days
[2019-11-10 21:12] LABS: Amphetamine Screen,Urine Not Detected (NotDetected); Barbiturate Screen,Urine Not Detected (NotDetected); Benzodiazepines Screen,Urine Not Detected (NotDetected); Cocaine Screen,Urine Not Detected (NotDetected); Methadone Screen, Urine Not Detected (NotDetected); Opiate Screen,Urine Not Detected (NotDetected); Oxycodone Screen, Urine Not Detected (NotDetected); Phencyclidine Screen,Urine Not Detected (NotDetected); Tricyclic Antidepressant,Urine Not Detected (NotDetected); Urn Cannabinoid Scrn Not Detected (NotDetected)
[2019-11-11] MEDS ORDERED: PANTOPRAZOLE 40 MG TABLET PO STA (04:37)
[2019-11-11] MEDS ORDERED: ACETAMINOPHEN TAB 325 MG TAB PO STA (04:40)
[2019-11-11] MEDS ORDERED: ZIPRASIDONE 20 MG VIAL IM PRN (07:32)
[2019-11-11] MEDS ORDERED: ACETAMINOPHEN TAB 325 MG TAB PO PRN (07:32)
--- NOTE | 2019-11-11 14:01 | P.HP ---
Psychiatric H&P - . H&P Date: 11/11/19 History & Physical: IDENTIFYING DATA: She is a 59-year-old female admitted to the psychiatric unit involuntarily. HISTORY OF PRESENT ILLNESS: The local police brought to emergency room with a pickup order initiated by [facility] because she did not follow through with her [facility] since she was discharged from this unit in June 2019. The patient alleged she is unaware that she "had to" received treatment through [facility]. Instead she had her family doctor prescribe her "psychiatric" medications - Lexapro and Topamax. She stated that she stopped the Abilify prescribed on discharge. She denied that she has a bipolar illness and does not require treatment for bipolar illness. She argued that this admission is a mistake and a result of a misunderstanding. She requested I speak with [facility] to clarify the situation. She later told me that she spoke to Aleisha who was expecting my call. I spoke with her therapist, Aleisha Ochoa, at [facility]. She stated that the patient Walked out of her initial intake appointment and did not answer subsequent telephone calls. Aleisha made several attempts to reengage her to no avail. Aleisha stated she never spoke to the patient but the patient did leave a telephone message. The patient denied all symptoms. She denied feeling depressed or having thoughts of or suicide. She denied problems with sleep, appetite, energy, concentration or activity. She denied experiencing psychotic symptoms such as hallucinations, delusions or thought disturbances. She denied alcohol or drug use problems. PAST PSYCHIATRIC HISTORY: She is a history of bipolar illness with multiple psychiatric hospitalizations. According to our records is her fourth admission to this unit. She will be treated by a private psychiatrist for many years for bipolar illness. However, she now alleges that after several years that psychiatrist determined that she has bipolar illness but, since he retired, he is documentation is no longer available for anyone to review. PAST MEDICAL HISTORY: She has history of migraines, degenerative joint disease, tendinitis and chronic back pain. ALLERGIES: Penicillin SUBSTANCE USE HISTORY: She denied a history of substance use and substance use problems FAMILY PSYCHIATRIC/SUBSTANCE USE HISTORY: She let she is unaware of family history of mental illness LEGAL HISTORY: She denied history of legal problems SOCIAL HISTORY: She is unemployed and receives Social Security income. She lives in an apartment in a "bad neighborhood" in [place]. She talked about having several bachelor degrees and a master's degree. She was . Her is . During prior admission she talked about ongoing legal problems with her extended family. MENTAL STATUS EXAM: She presented as a casually groomed elderly female who was pleasant on approach. She made eye contact and appeared to attend to the interview. She had a distressed facial expression. She is alert and orien martha to person, place and time. She was intermittently restless but showed no abnormal involuntary movements. Speech was spontaneous with increased rate but normal volume and rhythm. Her affect was dysphoric but not intense and appropriate. She denied suicidal ideation or wishes. She denied homicidal ideation. She ruminated about the circumstances of this hospitalization, the involuntary treatment status. She denied express ideas reference. She expressed paranoid ideation that she "suspects" that her landlord may have initiated the pickup order. She did not express clear delusional beliefs. Her thinking was abstract and associations were coherent, logical and goal directed. She did not express clang associations, perseverations, neologisms or blocking. She denied hallucinations did not appear to responding to internal stimuli. Global impression of intellect is average to above. She has limited awareness or understanding of her illness or need for treatment. STRENGTHS: good physical health, stable housing, stable income WEAKNESSES: lack of insight or understanding for mental illness, poor compliance with outpatient mental health treatment IMPRESSION: She is 59-year-old female who has a well- established diagnosis of viral illness. She presented to [facility] involuntarily on a pickup order for failure to comply with her outpatient alt ernative treatment order. She alleged that she was unaware of the treatment order or that she was required to receive treatment through community mental health. She did not continue with medications prescribed during her last discharge and denied she has a mental illness or needs treatment with mood stabilizing medications. She speech had an inpatient basis with combination of psychopharmacology and multimodal therapy. PRINCIPLE DIAGNOSIS: bipolar disorder most recent episode hypomanic, poor compliance with mental health treatment RECOMMENDATION: admitted to psychiatric unit. Safety precautions. Consult medicine for initial physical exam and medical history. 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 Restart Abilify 2 mg daily. Continue Topamax 50 mg by mouth twice a day. Discontinue Lexapro 5 mg daily. Encourage participation in therapeutic groups and activities. Evaluate clinical status response to treatment daily basis. Allergies Allergy/AdvReac Type Severity Reaction Status Date / Time latex Allergy Swelling Verified 11/11/19 08:56 Penicillins Allergy Swelling Verified 11/11/19 08:56 Vital Signs Temp 98.8 F 11/11/19 08:41 Pulse 94 11/11/19 08:41 Resp 17 11/11/19 08:41 BP 144/86 11/11/19 08:41 Pulse Ox 97 11/11/19 04:45 Intake & Output 11/10/19 11/11/19 11/11/19 18:59 06:59 18:59 Weight 71.668 kg 71.668 kg Laboratory Last Values Urine Opiates Screen Not Detected (NotDetected) 11/10/19 20:53 Ur Oxycodone Screen Not Detected (NotDetected) 11/10/19 20:53 Urine Methadone Screen Not Detected (NotDetected) 11/10/19 20:53 Ur Propoxyphene Screen Not Detected (NotDetected) 05 20:53 Ur Barbiturates Screen Not Detected (NotDetected) 11/10/19 20:53 U Tricyclic Antidepress Not Detected (NotDetected) 05 20:53 Ur Phencyclidine Scrn Not Detected (NotDetected) 05 20:53 Ur Amphetamines Screen Not Detected (NotDetected) 11/10/19 20:53 U Methamphetamines Scrn Not Detected (NotDetected) 11/10/19 20:53 U Benzodiazepines Scrn Not Detected (NotDetected) 11/10/19 20:53 Urine Cocaine Screen Not Detected (NotDetected) 11/10/19 20:53 U Marijuana (THC) Screen Not Detected (NotDetected) 11/10/19 20:53 11/11/19 13:41
[2019-11-11] MEDS: TOPIRAMATE 25 MG TAB PO SCH (20:20)
[2019-11-11] MEDS: LORazepam 1 MG TAB PO PRN (22:06)
[2019-11-11] MEDS: MAG HYDROX/AL HYDROX/SIMETH 30 ML CUP PO PRN (22:06)
--- NOTE | 2019-11-11 23:25 | P.CONS ---
History of Present Illness - Reason for Consult Consult date: 11/11/19 Medical management Requesting physician: Filipe Barrera - Chief Complaint Noncompliant - History of Present Illness Consultation: This is a 59-year-old patient who follows with Dr. Jolly. Chronic stable medical conditions include migraines, osteoarthritis, tinnitus. Patient is brought in by the local police to the ER following a pickup order a patient with a [facility] because patient did not follow through with her [facility] since she was discharged from the hospital in June 2019. Apparently a therapist and try to reach out to her and patient had walked out. She had tried to engage the patient but the patient did not respond. Has patient was brought in. Patient's appetite is fair bowel movements of 4 denies any trouble with sleeping. Denies any anxiety depression, slight stress specialty being here. No fever no chills no cough. Review of systems: GEN.: None EYES: None HEENT: None NECK: None RESPIRATORY: None CARDIOVASCULAR: None GASTROINTESTINAL: None GENITOURINARY: None MUSCULOSKELETAL: [Back and joint pains LYMPHATICS: None HEMATOLOGICAL: None PSYCHIATRY: As above NEUROLOGICAL: None Past medical history to include: Migraines, DJD, tinnitus, back injury, anxiety depression Social history: Lives alone. Does not smoke. Alcohol occasionally. Family history: Reviewed, noncontributory to presentation Physical examination: VITAL SIGNS: 98.8, 94, 17, 144/86, and 7% on room air GENERAL: BMI 25.5, sitting up in a chair appears comfortable. EYES: Pupils equal. Conjunctiva normal. HEENT: External appearance of nose and ears normal, oral cavity grossly normal. NECK: JVD not raised; masses not palpable. HEART: First and second heart sounds are normal; no edema. LUNGS: Respiratory rate normal; clear to auscultation. ABDOMEN: Soft, nontender, liver spleen not palpable, no masses palpable. PSYCH: Alert and oriented x3; mood and affect normal. NEUROLOGICAL: Cranial nerves grossly intact; no facial asymmetry, power and sensation grossly intact. LYMPHATICS: No lymph nodes palpable in the axilla and neck INVESTIGATIONS, reviewed in the clinical context: Urine drug screen negative Assessment: -Primary osteoarthritis -Chronic tinnitus -Bipolar disorder with episodic hypomanic with poor compliance with mental health Treatment-as diagnosed by psychiatry Plan: Care was discussed with the patient. Questions were answered. Discussed with the patient to comply with the mental health department and the treatment. Patient should follow with her PCP upon discharge. Thank you Dr. Barrera Past Medical History Additional Past Medical History / Comment(s): migraines, ddd, tinnitus, vaginal hemmorhage, back injury History of Any Multi-Drug Resistant Organisms: None Reported Past Surgical History: Section Additional Past Surgical History / Comment(s): hx of tmj, Past Anesthesia/Blood Transfusion Reactions: No Reported Reaction Past Psychological History: Anxiety, Depression Smoking Status: Former smoker Past Alcohol Use History: Rare Additional Past Alcohol Use History / Comment(s): When asked about smoking or other social questions, patient states sometimes I do but not often. Past Drug Use History: None Reported Additional Drug Use History / Comment(s): UDS negative Medications and Allergies Home Medications Medication Instructions Recorded Confirmed Type Albuterol Inhaler [Ventolin Hfa 2 puff INHALATION RT-Q4H PRN 11/10/19 11/11/19 History Inhaler] Escitalopram [Lexapro] 5 mg PO DAILY 11/10/19 11/11/19 History Estradiol Cream [Estrace Cream 1 gm VAGINAL MOWEFR 11/10/19 11/11/19 History 0.01%] SUMAtriptan SUCCINATE [Imitrex] 50 mg PO DAILY PRN MDD 200MG 11/10/19 11/11/19 History Topiramate [Topamax] 50 mg PO BID 11/10/19 11/11/19 History Allergies Allergy/AdvReac Type Severity Reaction Status Date / Time latex Allergy Swelling Verified 11/11/19 08:56 Penicillins Allergy Swelling Verified 11/11/19 08:56 Physical Exam Vitals: Vital Signs Temp Pulse Pulse Resp BP BP Pulse Ox 11/11/19 08:41 98.8 F 94 17 144/86 11/11/19 04:45 87 18 144/99 97 11/10/19 17:27 98.1 F 115 H 18 187/114 100 Intake and Output 11/10/19 11/11/19 11/11/19 22:59 06:59 14:59 Other: Weight 71.668 kg 71.668 kg
[2019-11-12 07:18] LABS: Basophils % (A) 1 %; Eosinophils # (A) 0.2 k/uL (0-0.7); Eosinophils % (A) 4 %; HCT 42.3 % (34.0-46.0); HGB 13.8 gm/dL (11.4-16.0); Lymphocytes # (A) 1.6 k/uL (1.0-4.8); Lymphocytes % (A) 31 %; MCH 30.6 pg (25.0-35.0); MCHC 32.5 g/dL (31.0-37.0); Mean Platelet Volume 8.6; Monocytes # (A) 0.3 k/uL (0-1.0); Monocytes % (A) 7 %; Neutrophils # (A) 2.8 k/uL (1.3-7.7); Neutrophils % (A) 56 %; Platelet Count 246 k/uL (150-450); RDW 13.4 % (11.5-15.5); WBC 5.1 k/uL (3.8-10.6)
[2019-11-12 07:34] LABS: Albumin 4.4 g/dL (3.5-5.0); Calcium 9.5 mg/dL (8.4-10.2); Potassium 4.3 mmol/L (3.5-5.1); Total Bilirubin 0.4 mg/dL (0.2-1.3); Total Protein 7.3 g/dL (6.3-8.2)
[2019-11-12] MEDS: ARIPiprazole 2 MG TAB PO SCH (09:46)
[2019-11-12] MEDS: TOPIRAMATE 25 MG TAB PO SCH (09:46)
--- NOTE | 2019-11-12 15:15 | P.PN ---
Subjective Progress Note Date: 11/12/19 Principal diagnosis: Bipolar disorder most recent episode hypomanic, poor compliance with mental health treatment I reviewed the medical record, interviewed the patient and discussed her treatment and treatment plan during team meeting. She had several complaints and concerns. She alleges that there was a miscommunication between her and her window caser at [facility] that led to this hospitalization. She dominated much of the interview. Her speech was rapid and she jumped from topic to topic. He continues to deny that she has a mental illness but agrees to continue with recommended treatment. Objective - Vital Signs Vital signs: Vital Signs Temp 97.8 F 11/12/19 13:33 Pulse 88 11/12/19 11:24 Resp 20 11/12/19 11:24 BP 118/76 11/12/19 11:24 Pulse Ox 95 11/12/19 06:46 Intake & Output 11/11/19 11/12/19 11/12/19 18:59 06:59 18:59 Weight 71.668 kg - Exam She presented as a casually groomed female who was pleasant on approach. She made eye contact and attended to the interview. She had a distressed facial expression. She was alert and oriented to person, place and time. She was not agitated or restless. Speech was spontaneous with increased rate and rhythm but normal volume. At times, I had difficulty interrupting her. She had no articulation difficulties. Her affect was dysphoric but stable and appropriate. She denied suicidal ideation or wishes. She denied homicidal ideation. She denied feeling hopeless, helpless or worthless. She ruminated about several topics including work, her apartment, her boyfriend, her experience with [facility], her experiences with medical and psychiatric providers. She did not express ideas reference of reference, paranoid ideation or delusions. Her thinking was abstract and associations were logical and goal directed. She denied hallucinations and did not appear to be responding to internal stimuli. - Labs CBC & Chem 7: 11/12/19 06:58 11/12/19 06:58 Labs: Abnormal Lab Results - Last 24 Hours (Table) 11/12/19 Range/Units 06:58 Chloride 109 H (98-107) mmol/L BUN 21 H (7-17) mg/dL Assessment and Plan Assessment: She appears hypomanic but controlled. She is compliant with treatment and is n ow agreeing to follow-up with [facility]. Plan: Continue inpatient treatment. Sick precautions. Continue Abilify 2 mg daily. Increase Topamax to 100 mg by mouth twice a day for complaints of increasing headaches. Encourage participation in therapeutic groups and activities. Evaluate clinical status response to treatment daily basis.
[2019-11-12] MEDS: LORazepam 1 MG TAB PO PRN ×2 (16:47→21:33)
[2019-11-12] MEDS: MAG HYDROX/AL HYDROX/SIMETH 30 ML CUP PO PRN (20:12)
[2019-11-12] MEDS: TOPIRAMATE 100 MG TAB PO SCH (20:12)
[2019-11-13] MEDS: PANTOPRAZOLE 40 MG TABLET PO SCH (07:55)
[2019-11-13] MEDS: ARIPiprazole 2 MG TAB PO SCH (07:55)
[2019-11-13] MEDS: TOPIRAMATE 100 MG TAB PO SCH ×2 (07:56→20:18)
[2019-11-13] MEDS: LORazepam 1 MG TAB PO PRN (15:43)
--- NOTE | 2019-11-13 16:50 | P.PN ---
Progress Note - Text Progress Note Date: 11/13/19 Clinical Problems: Bipolar disorder most recent episode hypomanic, poor compliance with medical health treatment Interim history: I reviewed the medical record and interviewed the patient. She perseverated on recurrent themes including her dissatisfaction with her residence, her difficulty finding work, her past legal problems, the issues with community mental health that led to this hospitalization and her ongoing financial problems. The increased dose of Topamax has relieved her headache Mental status exam: She was casually groomed pleasant and cooperative. Her speech was much less pressured did not admission. She was not agitated or restless. She is no longer irritable, angry and argumentative. She denied suicidal ideation or wishes. She did not EXPRESS ideas reference, paranoid ideation or delusions. Her thinking is abstract and associations are coherent and logical. She denied hallucinations did not appear to be responding to internal stimuli. Assessment: She is much to improve from admission and compliant with prescribed medications. Plan: Continue inpatient treatment. Safety precautions. Continue Abilify 2 mg daily and Topamax 100 mg by mouth twice a day. Plan for discharge on 11/15/2019. Continue participation in therapeutic groups and activities. Evaluate clinical status response to treatment daily basis.
[2019-11-13] MEDS: MAG HYDROX/AL HYDROX/SIMETH 30 ML CUP PO PRN (17:23)
[2019-11-14] MEDS: MAG HYDROX/AL HYDROX/SIMETH 30 ML CUP PO PRN (02:59)
[2019-11-14 07:23] VITALS: RESP 16
[2019-11-14] MEDS: TOPIRAMATE 100 MG TAB PO SCH ×2 (08:33→20:58)
[2019-11-14] MEDS: ARIPiprazole 2 MG TAB PO SCH (08:33)
[2019-11-14] MEDS: PANTOPRAZOLE 40 MG TABLET PO SCH (08:33)
[2019-11-14] MEDS: LORazepam 1 MG TAB PO PRN (12:44)
--- NOTE | 2019-11-14 15:02 | P.PN ---
Progress Note - Text Progress Note Date: 11/14/19 Clinical Problems: Bipolar disorder most recent episode hypomanic, poor compliance with medical health treatment Interim history: I reviewed the medical record and interviewed the patient. She had multiple concerns including her diagnosis, her headaches, body pain, jaw pain, tinnitus, whether or not she needs a hearing aid, the relative benefits of Abilify versus Lexapro, difficulty sleeping, concerns about employment and her income, concerns about her apartment and her experiences with [facility]. Mental status exam: She was casually groomed pleasant and cooperative. Her speech was much less pressured did not admission. She was not agitated or restless. She is no longer irritable, angry and argumentative. She denied suicidal ideation or wishes. She did not expressed ideas reference, paranoid ideation or delusions. Her thinking is abstract and associations are coherent and logical. She denied hallucinations did not appear to be responding to internal stimuli. Assessment: She is more restless angry and pressured than on admission. Plan: Continue inpatient treatment. Safety precautions. Continue Abilify 2 mg daily and Topamax 100 mg by mouth twice a day. Melatonin 5 mg at bedtime for sleep. Plan for discharge on 11/15/2019. Continue participation in therapeutic groups and activities. Evaluate clinical status response to treatment daily basis.
[2019-11-14] MEDS ORDERED: MELATONIN 5 MG TABLET PO SCH (21:00)
[2019-11-15 07:04] VITALS: BP 105/75; PULSE 89
[2019-11-15] MEDS: PANTOPRAZOLE 40 MG TABLET PO SCH (08:01)
[2019-11-15] MEDS: ARIPiprazole 2 MG TAB PO SCH (08:01)
[2019-11-15] MEDS: TOPIRAMATE 100 MG TAB PO SCH (08:01)
[2019-11-15] MEDS ORDERED: SUMAtriptan SUCCINATE 25 MG TAB PO STA (10:53)
--- NOTE | 2019-11-15 12:06 | P.DS ---
Providers Date of admission: 11/11/19 07:24 Attending physician: Filipe Barrera MD Consults: 11/11/19 07:32 Consult Physician Routine Consulting Provider: Tyree Quintero Consult Reason/Comments: H and P Do you want consulting provider notified?: Yes Primary care physician: Stated None - Discharge Diagnosis(es) (1) Bipolar disorder Current Visit: Yes Status: Chronic Priority: Medium (2) Noncompliance with treatment Current Visit: Yes Status: Chronic Priority: Medium Hospital Course: She is a 59-year-old female admitted to the psychiatric unit involuntarily. The police brought to emergency room with a pickup order initiated by [facility] because she did not follow through with her [facility] since she was discharged from this unit in June 2019. The patient alleged she is unaware that she "had to" received treatment through [facility]. Instead she had her family doctor prescribe her "psychiatric" medications - Lexapro and Topamax. She stated that she stopped the Abilify prescribed on discharge. She denied that she has a bipolar illness and does not require treatment for bipolar illness. She argued that this admission is a mistake and a result of a misunderstanding. She requested I speak with [facility] to clarify the situation. She later told me that she spoke to Aleisha who was expecting my call. I spoke with her therapist, Aleisha Ochoa, at [facility]. She stated that the patient Walked out of her initial intake appointment and did not answer subsequent telephone calls. Aleisha made several attempts to reengage her to no avail. Aleisha stated she never spoke to the patient but the patient did leave a telephone message. The patient denied all symptoms. She denied feeling depressed or having thoughts of or suicide. She denied problems with sleep, appetite, energy, concentration or activity. She denied experiencing psychotic symptoms such as hallucinations, delusions or thought disturbances. She denied alcohol or drug use problems. She has a history of bipolar illness with multiple psychiatric hospitalizations. According to our records is her fourth admission to this unit. She will be treated by a private psychiatrist for many years for bipolar illness. However, she now alleges that after several years that psychiatrist determined that she has bipolar illness but, since he retired, he is documentation is no longer available for anyone to review. We admitted her to the psychiatric unit under care of this auto service writer. We provided a comprehensive biopsychosocial assessment. The sql consultant desktop support consultant completed initial physical exam and medical history and diagnosed primary osteoarthritis and tinnitus. He met commended no change in her outpatient treatment regimen. She was prescribed Topamax 50 mg by mouth twice a day by her primary care provider for the treatment of chronic headaches. He has also been prescribing Lexapro for treatment of current mood disorder. We discontinued Lexapro due to history of a bipolar illness and her lability on presentation to the unit. Restart Abilify 2 mg daily. We also increased Topamax 200 mg twice a day for treatment of her mood disorder and headaches. She was irritable throughout most of hospitalization was compliant and posed no management problem. At time discharge she presented as a casually groomed elderly female who was irritable but cooperative. She made eye contact and attended the interview. She had no distinguishing features or prominent physical abnormalities. She had a distressed facial expression. She showed no abnormality of psychomotor activity. She was not agitated or restless. Her speech had increased rate but normal rhythm and volume. Her affect was dysphoric with stable and appropriate. She denied suicidal ideation, wishes or homicidal ideation. She expressed feelings of helplessness with regard to the probate order for involuntary treatment but did not express feelings of hopelessness and worthlessness. She was paranoid and expressed paranoid ideation. Her thinking was abstract and associations were logical and goal directed. She denied hallucinations did not appear to be responding to internal stimuli. Patient Condition at Discharge: Fair Plan - Discharge Summary Discharge Rx Participant: No New Discharge Prescriptions: New ARIPiprazole [Abilify] 2 mg PO DAILY #30 tab Melatonin 5 mg PO HS #30 tablet Topiramate [Topamax] 100 mg PO BID #60 tab Continue SUMAtriptan SUCCINATE [Imitrex] 50 mg PO DAILY PRN MDD 200MG PRN Reason: Migraine Headache Estradiol Cream [Estrace Cream 0.01%] 1 gm VAGINAL MOWEFR Escitalopram [Lexapro] 5 mg PO DAILY Albuterol Inhaler [Ventolin Hfa Inhaler] 2 puff INHALATION RT-Q4H PRN PRN Reason: Shortness Of Breath Discontinued Topiramate [Topamax] 50 mg PO BID Discharge Medication List Albuterol Inhaler [Ventolin Hfa Inhaler] 2 puff INHALATION RT-Q4H PRN 11/10/19 [History] Escitalopram [Lexapro] 5 mg PO DAILY 11/10/19 [History] Estradiol Cream [Estrace Cream 0.01%] 1 gm VAGINAL MOWEFR 11/10/19 [History] SUMAtriptan SUCCINATE [Imitrex] 50 mg PO DAILY PRN MDD 200MG 11/10/19 [History] ARIPiprazole [Abilify] 2 mg PO DAILY #30 tab 11/15/19 [Rx] Melatonin 5 mg PO HS #30 tablet 11/15/19 [Rx] Topiramate [Topamax] 100 mg PO BID #60 tab 11/15/19 [Rx] Follow up Appointment(s)/Referral(s): None,Stated [Primary Care Provider] - 1-2 days Activity/Diet/Wound Care/Special Instructions: Activity and diet as tolerated. Avoid the use of street drugs and alcohol. Take all medications as prescribed. When you are in need of refills on your medications please contact your medical provider and/or outpatient psychiatrist to have this done. Please go to scheduled outpatient appointment for aftercare treatment. If symptoms return or become worse, call the crisis line at and/or go to the nearest emergency room for evaluation. Discharge Disposition: HOME SELF-CARE
[2019-11-15] MEDS: LORazepam 1 MG TAB PO PRN (12:08)
[2019-11-15 12:27] VITALS: TEMP 97.8
== END 2019-11-15 16:18 | disposition home or self-care (01) | DRG 885 ==
LOC: EC 17:26 → 3MHU 11-11 07:24
PROVIDERS: ADMIT Psychiatry & Neurology Psychiatry; ATTEND Psychiatry & Neurology Psychiatry
DX: F31.0 Bipolar disorder, current episode hypomanic (principal); G43.909 Migraine, unspecified, not intractable, without status migrainosus; H93.19 Tinnitus, unspecified ear; M19.91 Primary osteoarthritis, unspecified site; F41.9 Anxiety disorder, unspecified; G89.29 Other chronic pain; M54.9 Dorsalgia, unspecified; Z87.891 Personal history of nicotine dependence; Z91.14 Patient's other noncompliance with medication regimen; Z91.19 Patient's noncompliance with other medical treatment and regimen; Z79.899 Other long term (current) drug therapy; Z88.0 Allergy status to penicillin; Z91.040 Latex allergy status
CPT/HCPCS: 80053; 80306; 82075; 85025; 99285

== ENCOUNTER 2019-12-30 18:58 | Inpatient (IN) | payer MEDICAID, OTHER ==
[2019-12-31] MEDS ORDERED: ACETAMINOPHEN TAB 325 MG TAB PO STA (00:29)
--- NOTE | 2019-12-31 01:55 | ED ---
Psych HPI - General Chief Complaint: Psychiatric Symptoms Stated Complaint: mental health Time Seen by Provider: 12/30/19 19:10 Source: patient Mode of arrival: ambulatory - History of Present Illness Initial Comments: Patient is a 59-year-old female who is brought into the emergency department by a [facility] Department on a pickup order. Please her confused as to why they are transporting the patient to the emergency department. Research into the reasoning demonstrates that the patient has been off of medications. Patient denies suicidal or homicidal thoughts. I did discuss the pickup order with the patient. She has very circular comments regarding her medications. She admits that she is not taking them however this is because her primary care physician and psychiatrist were not prescribing them to her. She also reports that she does not like the way they make her feel. Remainder of the HPI is limited - Related Data Previous Rx's Medication Instructions Recorded Topiramate [Topamax] 100 mg PO BID #60 tab 11/15/19 Allergies Allergy/AdvReac Type Severity Reaction Status Date / Time latex Allergy Swelling Verified 12/31/19 03:17 Penicillins Allergy Swelling Verified 12/31/19 03:17 Review of Systems ROS Statement: Those systems with pertinent positive or pertinent negative responses have been documented in the HPI. ROS Other: All systems not noted in ROS Statement are negative. Past Medical History Additional Past Medical History / Comment(s): migraines, ddd, tinnitus, vaginal hemmorhage, back injury History of Any Multi-Drug Resistant Organisms: None Reported Past Surgical History: Section Additional Past Surgical History / Comment(s): hx of tmj, Past Anesthesia/Blood Transfusion Reactions: No Reported Reaction Past Psychological History: Anxiety, Depression Smoking Status: Former smoker Past Alcohol Use History: Rare Past Drug Use History: None Reported General Exam Limitations: no limitations General appearance: alert, in no apparent distress Head exam: Present: atraumatic, normocephalic, normal inspection Eye exam: Present: normal appearance, PERRL, EOMI. Absent: scleral icterus, conjunctival injection, periorbital swelling ENT exam: Present: normal exam, mucous membranes moist Neck exam: Present: normal inspection. Absent: tenderness, meningismus, lymphadenopathy Respiratory exam: Present: normal lung sounds bilaterally. Absent: respiratory distress, wheezes, rales, rhonchi, stridor Cardiovascular Exam: Present: regular rate, normal rhythm, normal heart sounds. Absent: systolic murmur, diastolic murmur, rubs, gallop, clicks GI/Abdominal exam: Present: soft, normal bowel sounds. Absent: distended, tenderness, guarding, rebound, rigid Extremities exam: Present: normal inspection, full ROM, normal capillary refill. Absent: tenderness, pedal edema, joint swelling, calf tenderness Back exam: Present: normal inspection Neurological exam: Present: alert, oriented X3, CN II-XII intact Psychiatric exam: Present: agitated Skin exam: Present: warm, dry, intact, normal color. Absent: rash Course Vital Signs 12/30/19 19:06 Temperature 98.1 F Pulse Rate 105 H Respiratory 18 Rate Blood Pressure 161/88 O2 Sat by Pulse 98 Oximetry Medical Decision Making - Medical Decision Making Arrival the patient is placed into room 12. A thorough history and physical exam was performed. Patient is currently awaiting EPS evaluation and will be signed out to Dr. Hernandez - Lab Data Result diagrams: 12/31/19 08:44 12/31/19 08:44 Disposition Clinical Impression: Noncompliance with treatment Disposition: ADMITTED IP TO THIS [facility] Condition: Stable Is patient prescribed a controlled substance at d/c from ED?: No
[2019-12-31] MEDS ORDERED: MAGNESIUM HYDROXIDE 2,400 MG/10 ML CUP PO PRN (03:08)
[2019-12-31] MEDS ORDERED: ZIPRASIDONE 20 MG VIAL IM PRN (03:08)
[2019-12-31] MEDS ORDERED: ACETAMINOPHEN TAB 325 MG TAB PO PRN (03:08)
[2019-12-31] MEDS ORDERED: LORazepam 2 MG/ML INJ IM PRN (03:16)
[2019-12-31 09:33] LABS: Basophils % (A) 1 %; Eosinophils # (A) 0.1 k/uL (0-0.7); Eosinophils % (A) 3 %; HCT 39.3 % (34.0-46.0); HGB 12.9 gm/dL (11.4-16.0); Lymphocytes # (A) 1.4 k/uL (1.0-4.8); Lymphocytes % (A) 36 %; MCH 30.6 pg (25.0-35.0); MCHC 32.9 g/dL (31.0-37.0); MCV 92.9 fL (80.0-100.0); Mean Platelet Volume 8.8; Monocytes # (A) 0.3 k/uL (0-1.0); Monocytes % (A) 8 %; Neutrophils # (A) 1.9 k/uL (1.3-7.7); Neutrophils % (A) 49 %; Platelet Count 209 k/uL (150-450); RBC 4.22 m/uL (3.80-5.40)
[2019-12-31 09:42] LABS: ALT 13 U/L (4-34); AST 22 U/L (14-36); African American GFR (CKD) >90 (>60 ml/min/1.73 sqM); Albumin 4.1 g/dL (3.5-5.0); Alkaline Phosphatase 67 U/L (38-126); Anion Gap 5 mmol/L; Bilirubin,Unconjugated 0.7 mg/dL (0.0-1.1); Blood Urea Nitrogen 12 mg/dL (7-17); Calcium 9.1 mg/dL (8.4-10.2); Carbon Dioxide 23 mmol/L (22-30); Chloride 112 mmol/L (98-107); Glucose 99 mg/dL (74-99); Non-African American GFR(CKD) >90 (>60 ml/min/1.73 sqM); Sodium 140 mmol/L (137-145); Total Bilirubin 0.7 mg/dL (0.2-1.3); Total Protein 6.5 g/dL (6.3-8.2)
[2019-12-31] MEDS: LORazepam 1 MG TAB PO PRN (09:47)
--- NOTE | 2019-12-31 10:43 | HP ---
HISTORY AND PHYSICAL IDENTIFYING DATA: This patient is a 59-year-old, , female was admitted to the psychiatric unit involuntarily on an existing court order. HISTORY OF PRESENT ILLNESS: The patient was brought to the emergency room on a pickup order issued by [facility], as she did not comply with appointments and/or medication treatment. The patient carries a diagnosis of bipolar disorder. She has been admitted to this unit numerous times. Her last admission was in October of 2019. She indicates that she was treated with Topamax and some Abilify with her last admission, but she has not been taking that medication. She felt the Topamax made her feel dumb, gave her dry mouth and she felt uncomfortable taking the Abilify. She states the Abilify made her feel irritable. She states that she has no john in the diagnosis of bipolar disorder. She states that this is an insurance racquet and we are just trying to trap her in this perpetual process. She reports no symptoms when we review mood symptoms such as depression, hypomania or christel. She does have a clearly documented history of hypomanic episodes at least. She does describe having anxiety in the form of panic attacks when she is driving. She reports that she has a history of head injury and that explains all of her presentation. She reports no thoughts of wanting to hurt or kill herself, hurt or kill anyone else. She is endorsing no symptoms of psychosis; however, she does demonstrate paranoid and persecutory thinking. PAST PSYCHIATRIC HISTORY: This is the patient's fifth psychiatric hospitalization since February of 2015. She had 2 hospitalizations this year, one in June, one in October. She is supposed to be following up with [facility]. I am informed that she is on a treatment order. I do not know when the expiration of that order is. She reports no suicide attempt history. PAST MEDICAL HISTORY: Migraines, degenerative joint disease, tendinitis, chronic back pain. ALLERGIES: PENICILLIN. CHEMICAL DEPENDENCY HISTORY: She reports no use of alcohol, marijuana, or illicit drugs. FAMILY PSYCHIATRIC HISTORY: Unaware. FAMILY CHEMICAL DEPENDENCY HISTORY: Unaware. SOCIAL HISTORY: The patient is unemployed. She receives social security income. She lives in an apartment in [place]. She states that she has 3 degrees and 12 years of college. She was . Her is . She reports no history of being arrested. Abuse history unknown. She speaks of having PTSD, but does not describe the trauma. MENTAL STATUS EXAM: The patient is a tall, thin female appearing her stated age. She is dressed in her own clothing. Hygiene and grooming fair. Eye contact is adequate. Speech is fluent, spontaneous, verbose. She is pressured at times. She demonstrates some disorganization of thought. I have to interrupt several times in the session to direct the session. She is intrusive when I am speaking. She continues to describe a paranoid persecutory, feels that she is trapped in a cycle just to bill her insurance. She has impaired insight into her mental illness and her judgment is subsequently impaired. She is reporting no hallucinations. She has no insight into any paranoid thinking. She demonstrates no verbal or physical aggressiveness. She demonstrates no involuntary repetitive movements. Cognitively, she is aware of person, place, and date. She is able to name the days of the week backwards. STRENGTHS: Housing, income. WEAKNESSES: Poor insight into mental illness. Poor compliance with outpatient treatment. IMPRESSIONS: Bipolar 1 disorder, most recent manic with possible psychosis. PLAN OF TREATMENT: The patient has been admitted to the mental health unit involuntarily. She is on the existing court order. We reviewed her treatment options. She is amenable to starting Depakote ER as a mood stabilizer. We will use 500 mg at bedtime. We discussed that this may give us a subtherapeutic level, but she prefers to start lower. No lab results are available at this time. She will be seen by Internal Medicine for routine history and physical exam. Social Work will meet with the patient to complete a psychosocial assessment and begin discharge planning. We will involve any available support and treatment discharge planning as she will allow. MMODL / IJN: [id number] /
[2019-12-31] MEDS: DIVALPROEX ER 500 MG TAB.ER.24H PO SCH (21:10)
--- NOTE | 2019-12-31 21:55 | P.CONS ---
History of Present Illness - Reason for Consult Consult date: 12/31/19 Medical management Requesting physician: Maxwell Bright - Chief Complaint Not taking medications - History of Present Illness - Chief Complaint Noncompliant - History of Present Illness Consultation: This is a 59-year-old patient who follows with Dr. Jolly. Chronic stable medical conditions include migraines, osteoarthritis, chronic tinnitus. She is rather. Wishes to the inpatient psychiatry unit. Patient is brought in by the [facility] was sent to continue the ER. It was a pickup order. Patient has not been taking her medications. Confirms the same. She told the ER physician she did not like the way she was feeling because then. She feels a lot of her symptoms are from a prior head injury. Patient has some reflux symptoms. Appetite is okay. Bowel habits are good. Sometimes trouble slee ping. She is rather R to quit. Denies any depression and anxiety. Answering questions appropriately. Review of systems: GEN.: None EYES: None HEENT: None NECK: None RESPIRATORY: None CARDIOVASCULAR: None GASTROINTESTINAL: Reflux symptoms GENITOURINARY: None MUSCULOSKELETAL: [Back and joint pains LYMPHATICS: None HEMATOLOGICAL: None PSYCHIATRY: C psychiatry notes NEUROLOGICAL: None Past medical history to include: Migraines, DJD, tinnitus, back injury, anxiety depression Social history: Lives alone. Does not smoke. Alcohol occasionally. Family history: Reviewed, noncontributory to presentation Physical examination: VITAL SIGNS: 98.5, 87, 18, 111 was 72, 95% room air GENERAL: BMI 23.4, sitting at the edge of the bed, comfortable EYES: Pupils equal. Conjunctiva normal. HEENT: External appearance of nose and ears normal, oral cavity grossly normal. NECK: JVD not raised; masses not palpable. HEART: First and second heart sounds are normal; no edema. LUNGS: Respiratory rate normal; clear to auscultation. ABDOMEN: Soft, nontender, liver spleen not palpable, no masses palpable. PSYCH: Alert and oriented x3; mood and affect normal. MUSCULOSKELETAL: Evidence of OA especially in the hands NEUROLOGICAL: Cranial nerves grossly intact; no facial asymmetry, power and sensation grossly intact. LYMPHATICS: No lymph nodes palpable in the axilla and neck INVESTIGATIONS, reviewed in the clinical context: White count 4 hemoglobin 12.9 platelets 209 potassium 4 creatinine 0.71 TSH 2.9 glucose 99 Assessment: -Primary osteoarthritis -Chronic tinnitus -Bipolar 1 disorder, most recent manic with possible psychosis-as per psychiatry Plan: Patient question were answered. Her questions per stenting to psychiatrist will be deferred to the attending. Patient is to follow with the family doctor upon discharge. Thank you Dr. Bright Past Medical History Additional Past Medical History / Comment(s): migraines, ddd, tinnitus, vaginal hemmorhage, back injury History of Any Multi-Drug Resistant Organisms: None Reported Past Surgical History: Section Additional Past Surgical History / Comment(s): hx of tmj, Past Anesthesia/Blood Transfusion Reactions: No Reported Reaction Past Psychological History: Anxiety, Bipolar, Depression Smoking Status: Former smoker Past Alcohol Use History: Rare Additional Past Alcohol Use History / Comment(s): When asked about smoking or other social questions, patient states sometimes I do but not often. Past Drug Use History: None Reported Additional Drug Use History / Comment(s): UDS negative Medications and Allergies Home Medications Medication Instructions Recorded Confirmed Type Topiramate [Topamax] 100 mg PO BID #60 tab 11/15/19 12/31/19 Rx Allergies Allergy/AdvReac Type Severity Reaction Status Date / Time latex Allergy Swelling Verified 12/31/19 03:17 Penicillins Allergy Swelling Verified 12/31/19 03:17 Physical Exam Vitals: Vital Signs Temp Pulse Pulse Pulse Resp BP BP 12/31/19 09:48 97.7 F 87 18 12/31/19 03:40 98.5 F 78 14 139/84 12/30/19 19:06 98.1 F 105 H 18 161/88 BP Pulse Ox 12/31/19 09:48 111/72 12/31/19 03:40 95 12/30/19 19:06 98 Intake and Output 12/30/19 12/31/19 12/31/19 22:59 06:59 14:59 Other: Weight 67.132 kg 65.771 kg Results CBC & Chem 7: 12/31/19 08:44 12/31/19 08:44 Labs: Abnormal Lab Results - Last 24 Hours (Table) 12/31/19 Range/Units 08:44 Chloride 112 H (98-107) mmol/L
[2020-01-01] MEDS: LORazepam 1 MG TAB PO PRN ×2 (03:31→15:22)
[2020-01-01] MEDS: MAG HYDROX/AL HYDROX/SIMETH 30 ML CUP PO PRN ×3 (03:31→18:47)
[2020-01-01 05:52] LABS: Cholesterol 213 mg/dL (<200); HDL Cholesterol 43 mg/dL (40-60); LDL Cholesterol,Calculated 140 mg/dL (0-99); Triglycerides 150 mg/dL (<150)
[2020-01-01 14:50] LABS: Hemoglobin A1C 5.4 % (4.0-6.0)
--- NOTE | 2020-01-01 18:10 | P.PN ---
Progress Note - Text Progress Note Date: 01/01/20 Subjective: Patient was seen today as a cross coverage for Dr. Bright. The patient was evaluated, chart reviewed, case discussed with the treatment team. Patient reported good sleep last night. Appetite was reported as "fair ". Patient has been going to some groups and other unit activities. The patient is compliant with her medications and denies any adverse reactions. Patient reports feeling calmer today, and minimizes depression. She presents talkative and to some degree tangential. She was fixated talking about trauma in the past, and presents with some grandiosity about her background. She reports is still feeling anxious and worried for most of the time. Reports sometimes feeling hopeless, but denies suicidal ideation. Denies any hallucinations, paranoid ideation, or homicidal ideation. Objective: Vitals has been reviewed. Mental status examination; Appearance: The patient appears stated age, adequately groomed and dressed, no specific features. Gait/posture: Normal gait, Normal arm swinging: No abnormal movements. Attitude and behavior: engaged, cooperative, eye contact. Motor activity: Normal psychomotor activity Speech: Normal rate, tone. Mood: Anxious Affect: Constricted Thought form: goal-directed, linear, coherent. Thought content: Non-delusional, some grandiosity, hopelessness denies suicidal thoughts, denies homicidal thoughts, denies intentions or plans. Perception: Denies any auditory or visual hallucinations Attention: No impairment. Orientation: Patient patient was fully oriented to time place person and situation. Insight: Patient has fair insight about her psychiatric disorder. Judgment: Patient has fair judgment about her psychiatric treatment. Assessment: Bipolar disorder, most recent episode manic. Possible psychotic features Plan: Continue inpatient level of care due to need for further monitoring and stabi lization Precautions: Continue 15 minutes check for safety. Consider medical consultation if any acute medical issues arise. Provide the patient individual, group therapy, substance use disorder counseling to give better insight and learn coping skills. Continue follow-up with the patient daily to monitor progress of mood instability symptoms. Medications: Depakote for mood stabilization. Consider obtain Depakote level after 3 days. Continue when necessary medications for agitation and severe anxiety Discharge patient to OUTPATIENT services upon a stabilization
[2020-01-01] MEDS: DIVALPROEX ER 500 MG TAB.ER.24H PO SCH (20:52)
[2020-01-02] MEDS: LORazepam 1 MG TAB PO PRN (10:48)
[2020-01-02] MEDS: FAMOTIDINE 20 MG TAB PO SCH ×2 (14:14→20:58)
[2020-01-02] MEDS: SODIUM CHLORIDE 0.65% NASAL SPRAY 44 ML BTL NASAL PRN (15:49)
[2020-01-02 16:08] LABS: Appearance,Urine Clear (Clear); Bacteria,Urine Rare /hpf; Bilirubin,Urine Negative (Negative); Blood,Urine Negative (Negative); Color,Urine Colorless; Glucose,Urine (UA) Negative (Negative); Ketones,Urine Negative (Negative); Leukocyte Esterase,Urine Small (Negative); Nitrite,Urine Negative (Negative); PH, Urine 6.5 (5.0-8.0); Protein,Urine Negative (Negative); RBC,Urine 2 /hpf (0-5); Specific Gravity,Urine 1.003 (1.001-1.035); Squamous Epithelial Cell,Urine 2 /hpf (0-4); Urobilinogen,Urine <2.0 mg/dL (<2.0); WBC,Urine 3 /hpf (0-5)
--- NOTE | 2020-01-02 16:31 | P.PN ---
Progress Note - Text Progress Note Date: 01/02/20 Subjective: Patient was seen today as a cross coverage for Dr. Bright. The patient was evaluated, chart reviewed, case discussed with the treatment team. Patient was continued to feel helped with the medication and her mood is more stable. She denies any severe mood swings, outburst of anger or agitation and denies any manic or psychotic symptoms. Denies any S/H ideation. She reports fair sleep and appetite and continued to take her medications with no side effects. Patient attends groups and other unit activities. She reports his stomach upset and she used to take Protonix at home which she requested. Objective: Mental status examination; Appearance: The patient appears stated age, adequately groomed and dressed, no specific features. Gait/posture: Normal gait, Normal arm swinging: No abnormal movements. Attitude and behavior: engaged, cooperative, eye contact. Motor activity: Normal psychomotor activity Speech: Normal rate, tone. Mood: Anxious Affect: Constricted Thought form: goal-directed, linear, coherent. Thought content: Non-delusional, denies feeling hopelessness denies suicidal thoughts, denies homicidal thoughts, denies intentions or plans. Perception: Denies any auditory or visual hallucinations Attention: No impairment. Orientation: Patient patient was fully oriented to time place person and situation. Insight: Patient has fair insight about her psychiatric disorder. Judgment: Patient has fair judgment about her psychiatric treatment. Assessment: Bipolar disorder, most recent episode manic. Possible psychotic features Plan: Continue inpatient level of care due to need for further monitoring and stabilization Precautions: Continue 15 minutes check for safety. Consider medical consultation if any acute medical issues arise. Provide the patient individual, group therapy, substance use disorder counseling to give better insight and learn coping skills. Continue follow-up with the patient daily to monitor progress of mood instability symptoms. Medications: Depakote for mood stabilization. Consider obtain Depakote level after 2 days. Continue when necessary medications for agitation and severe anxiety Medical team consulted to continue Protonix for acid reflux. Discharge patient to OUTPATIENT services upon a stabilization
[2020-01-02] MEDS: DIVALPROEX ER 500 MG TAB.ER.24H PO SCH (20:58)
[2020-01-03] MEDS: FAMOTIDINE 20 MG TAB PO SCH ×2 (08:18→19:53)
[2020-01-03 11:17] LABS: Urine Alcohol Negative (Negative); Urine Barbiturate Negative (Negative); Urine Cocaine Negative (Negative); Urine Methadone Negative (Negative); Urine Opiates Negative (Negative); Urine Phencyclidine Negative (Negative)
--- NOTE | 2020-01-03 11:30 | P.PN ---
Progress Note - Text Interval history: The patient is found in group she follows me to an interview room. She indicates her mood is frustrated. For numerous minutes she discusses her concerns about a guardian being appointed for her. She feels that this will prevent any opportunities for her to be employed. She discusses her court order. She states that she feels that she is on probation and does not wish to participate in treatment with [facility]. We reviewed her medication we decided to titrate the Depakote further. She indicates that she has not had any headaches since starting the Depakote. She was previously using Topamax for migraine cephalgia. Mental status exam: The patient is alert she stressor own clothing in layers she has a disheveled appearance hygiene is adequate. Eye contact is appropriate speech is fluent spontaneous she is pressured. She will speak nonstop until interrupted and she often interrupts in conversation. Insight and judgment are impaired she does not recognize her hypomanic/manic symptoms at this time. She reports no suicidal or homicidal ideation. She is endorsing no auditory or visual hallucinations. She describes paranoid thinking. She demonstrates no verbal or physical aggressiveness she demonstrates no involuntary repetitive movements. Plan: The patient will continue on the Depakote ER we will titrate to 750 mg at bedtime. We will monitor her for safety. She is encouraged to fully participate in the milieu. She is not yet clinically stable she is not yet appropriate for discharge from the mental health unit.
[2020-01-03] MEDS: LORazepam 1 MG TAB PO PRN ×2 (13:32→23:06)
[2020-01-03] MEDS: DIVALPROEX ER 250 MG TAB.ER.24H PO SCH (19:53)
[2020-01-04] MEDS: FAMOTIDINE 20 MG TAB PO SCH (08:00)
[2020-01-04] MEDS: PANTOPRAZOLE 40 MG TABLET PO SCH (10:02)
--- NOTE | 2020-01-04 11:18 | P.PN ---
Progress Note - Text Interval history: The patient is found in the hallway she follows me to an interview room. She indicates she slept well and staff recorded she slept 7 hours. She remains compliant with the Depakote ER at its current dose. She has been attending some groups. She indicates she spoke with a superintendent production. She continues to be frustrated that her clinician has requested the court issue a public guardian. She indicates that she is trying to attend to her thought process and rate of speech. Mental status exam: The patient is alert she is dressed in her own clothing she is wearing a hospital gown over top. She is found ambulating in the hallway she demonstrates no ataxia. She follows me to an interview room. She states that her mood is frustrated. Speech is fluent spontaneous verbose she does still demonstrate some tangential thinking and circumstantial thinking but it is improved from 2 days ago. She conveys a sense of suspiciousness or paranoia. She feels that this whole process is punitive and is probation rather than treatment oriented. She is reporting no suicidal or homicidal ideation intent or plan. She is endorsing no auditory or visual hallucinations or any specific delusions. Again she is focused on community mental health "controlling me". She lacks insight into her presentation to the hospital and her diagnosis. Plan: The patient will continue her current psychotropic medication. We will plan to get a Depakote level later in the week. Vital signs reviewed. She is encouraged to fully participate in the milieu we will monitor her for safety. She requires continued psychiatric hospitalization.
[2020-01-04] MEDS: LORazepam 1 MG TAB PO PRN (15:44)
[2020-01-04] MEDS: SODIUM CHLORIDE 0.65% NASAL SPRAY 44 ML BTL NASAL PRN (18:39)
[2020-01-04] MEDS: DIVALPROEX ER 250 MG TAB.ER.24H PO SCH (20:22)
[2020-01-05] MEDS: PANTOPRAZOLE 40 MG TABLET PO SCH (09:17)
--- NOTE | 2020-01-05 11:40 | P.PN ---
Progress Note - Text Interval history: The patient is found in group she follows me to an interview room. She indicates her mood is improving. She continues to ventilate feelings of frustration regarding the appointment of a guardian. She continues to feel that that is unnecessary. She continues to feel that her management with [facility] is a "probation". We reviewed her medication she feels the Depakote is causing no side effect she has no questions or concerns regarding the medication. We agreed to have a level drawn to see if we need to titrate the dose further. She has been participating in groups, she slept 6-7 hours last night, appetite is been stable. Mental status exam: The patient is alert she is dressed from clothing and wearing a hospital gown over top. Eye contact is appropriate. Speech is fluent spontaneous she is verbose and do need to interrupt twice during the session. She does continue to demonstrate tangential thinking and she is somewhat repetitive. She is gaining some insight into her thought process. She reports no suicidal or homicidal thoughts she is endorsing no auditory or visual hallucinations or any specific delusions. She may have some persecutory thinking. She demonstrates no verbal or physical aggressiveness she demonstrates no involuntary repetitive movements. Affect is constricted. She does readily engages in conversation and is directable. Plan: The patient will continue on the Depakote ER in its current dose we will draw a Depakote level in the morning. We will consider titrating dose further if needed. She is demonstrating slow improvement in terms of her symptoms of christel. Vital signs reviewed.
[2020-01-05] MEDS: SODIUM CHLORIDE 0.65% NASAL SPRAY 44 ML BTL NASAL PRN (16:48)
[2020-01-05] MEDS: DIVALPROEX ER 250 MG TAB.ER.24H PO SCH (20:54)
[2020-01-06] MEDS: LORazepam 1 MG TAB PO PRN (02:22)
[2020-01-06] MEDS: PANTOPRAZOLE 40 MG TABLET PO SCH (07:53)
[2020-01-06 08:40] LABS: Valproic Acid (Depakene) 80.5 ug/mL
--- NOTE | 2020-01-06 13:58 | P.PN ---
Subjective Progress Note Date: 01/06/20 Principal diagnosis: Diagnosis: Bipolar 1 manic Subjective: Like most bipolar manic patients she explains that she is always this way and she is just trying to be efficient and that she assures she is not rambling. But then she asked me so do think I'm rambling. She says she slept okay. 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 She thinks that she is going to be getting a stimulus package check which she continues to pray a trial lawyer to help her get around blocks so she can get a job then she rambles on how her friends in town wonder what she is doing in [place] when she is so intelligent. Objective: Patient still has some pressured speech and mild flight of ideas she has much less defensive when I point out that she needs to get back on track and does not ramble as badly as yesterday. Her level was just over 80 which is just barely therapeutic and its beginning to help her slow down some. She would like to take 1000 simply so she only has to take 2 pills instead of 3 but I do think that would be advisable. She says that it does bother her stomach slightly when she takes it so she is going to try to take it with food and we will move the Protonix to the evening and see if that helps. Assessment plan the patient is still manic and not really very insightful about that. However low doses of medicine are being tolerated well with some benefit I think a slight increase would give her even more stability and we should see some good improvement in the next few days the team says that they have seen a definite improvement daily over the last 2-3 days I think she still needs to be in a hospital due to low insight and racing pressured speech her ability to make [place] judgment and protect herself from impulsivity of the illness is limited. Objective - Vital Signs Vital signs: Vital Signs Temp 97.9 F 01/06/20 13:43 Pulse 83 01/06/20 02:20 Resp 18 01/06/20 02:20 BP 146/85 01/06/20 02:20 Pulse Ox 97 01/02/20 06:47 - Labs CBC & Chem 7: 12/31/19 08:44 12/31/19 08:44
[2020-01-06] MEDS: DIVALPROEX ER 500 MG TAB.ER.24H PO SCH (20:39)
--- NOTE | 2020-01-07 10:15 | P.PN ---
Subjective Progress Note Date: 01/07/20 Principal diagnosis: Diagnosis: Bipolar 1 manic Subjective: The patient says that she slept reasonably well staff record about 5 hours. She is doing a better job of picking up on when she is rambling and controlling. She acknowledges that other people with problems get on her nerves but she is doing a better job of telling herself that is their problem and she doesn't have to fix them. She says her appetite is fine. She denies severe pain no dizziness when she stands up fast. She was somewhat concerned about her blood pressure being low I assured her that 109/50 was fine. Objective: Vital signs temperature 90.8 heart rate 60 respirations 17 oxygenation 98 blood pressure 109/50 The patient is cooperative though still rambles somewhat and is somewhat circumstantial in her logic denies any suicidal or homicidal ideas takes good care of her hygiene on her own and functions with ADLs independently her last labs were on 710 except for her Depakote level which was barely therapeutic we increased that to 1000 yesterday and will repeat a level Friday night before her evening dose. Assessment plan: The patient's bipolar christel is gradually clearing. On mental status exam she does ramble but not as badly as yesterday and there is a daily improvement and she is aware of it and able to get back on track without being defensive when it is pointed out. Eye contact is good she is oriented to person place time and circumstance she is able to understand highly abstract ideas and is beginning to plan for doing well after discharge. I think we need to recheck the Depakote watch the blood pressure make sure she continues to slow down and look for discharge early next week. No change in medication suggested at this time I think that 1000 will be adequate to give her coverage and a cushion for the natural fluctuations of the disorder. Objective - Vital Signs Vital signs: Vital Signs Temp 98.0 F 01/07/20 06:39 Pulse 60 01/07/20 06:39 Resp 17 01/07/20 06:39 BP 109/56 01/07/20 06:39 Pulse Ox 98 01/07/20 06:39 - Labs CBC & Chem 7: 12/31/19 08:44 12/31/19 08:44
[2020-01-07 11:22] VITALS: BMI 23.8
[2020-01-07] MEDS: LORazepam 1 MG TAB PO PRN (16:34)
[2020-01-07] MEDS: PANTOPRAZOLE 40 MG TABLET PO SCH (21:07)
[2020-01-07] MEDS: DIVALPROEX ER 500 MG TAB.ER.24H PO SCH (21:07)
[2020-01-08] MEDS: LORazepam 1 MG TAB PO PRN (09:07)
--- NOTE | 2020-01-08 11:47 | P.PN ---
Progress Note - Text Progress Note Date: 01/08/20 Interval history: Patient is seen in cross coverage today. She does seem to relay that they Depakote is giving her some benefit. We discussed her Depakote level being therapeutic.. She does describe perhaps some stomach upset with that, she is currently taking her Protonix at bedtime with the Depakote. She describes feeling as though she is dealing more with trauma/stress disorder as opposed to mood disorder. She also does seem to describe some excessive worry. She also describes some ongoing fatigue and some pain issues. Mental status exam: She is alert and cooperative with the interview. Regarding mood she says she feels as though she is dealing with trauma/stress more than she is a mood disorder. She relays that she is not suicidal. She does not voice any thoughts of harm to others. She does not verbalize any hallucinations and does not show any significant agitation. Her speech is fluent, not significantly rapid or pressured. Plan: Patient will be maintained on current psychotropic medication regimen. Continue to monitor for any medication side effects and monitor her ongoing status. We'll continue to monitor this patient and provide cross coverage through the weekend.
[2020-01-08] MEDS: PANTOPRAZOLE 40 MG TABLET PO SCH (20:35)
[2020-01-08] MEDS: DIVALPROEX ER 500 MG TAB.ER.24H PO SCH (20:35)
--- NOTE | 2020-01-09 13:21 | P.PN ---
Progress Note - Text Progress Note Date: 01/09/20 Interval history: Patient seen in cross coverage again today. She says she slept well last night and she is eating well. She does feel like the Depakote makes her colon more motile. She does talk about discharge planning soon. Mental status exam: She is alert and cooperative with the interview. Her speech is fluent, not rapid or pressured. Her thought processes are organized. Her mood she describes as pretty steady. She relays she only really has anxiety related to driving. She does not verbalize any thoughts of harm to self or others. She does not verbalize any hallucinations. She does utilize some humor during the session. Plan: Patient will be maintained on current psychotropic medication regimen. Continue to monitor for any medication side effects and monitor her ongoing response to treatment.
[2020-01-09] MEDS: LORazepam 1 MG TAB PO PRN (15:36)
[2020-01-09] MEDS: PANTOPRAZOLE 40 MG TABLET PO SCH (20:19)
[2020-01-09] MEDS: DIVALPROEX ER 500 MG TAB.ER.24H PO SCH (20:19)
[2020-01-10 03:54] VITALS: BP 121/89; PULSE 90; RESP 18
--- NOTE | 2020-01-10 12:01 | P.DS ---
Providers Date of admission: 12/31/19 03:01 Expected date of discharge: 01/10/20 Attending physician: Edita Saldaña MD Consults: 12/31/19 03:08 Consult Physician Routine Consulting Provider: Tyree Quintero Consult Reason/Comments: For H & P for Medical Follow Up Do you want consulting provider notified?: Yes, Notify in am Primary care physician: Claus Jolly - Discharge Diagnosis(es) (1) Bipolar disorder, most recent episode hypomanic Current Visit: Yes Status: Acute Pertinent Studies: Labs: The patient was informed that her triglycerides cholesterol and LDL were all elevated and that she needed to get some help from her family doctor for that and to watch her diet. Procedures: no procedures done Patient Condition at Discharge: Good Plan - Discharge Summary New Discharge Prescriptions: New Divalproex ER [Depakote ER] 1,000 mg PO HS 30 Days #60 tab.er.24h Pantoprazole [Protonix] 40 mg PO HS 30 Days #30 tablet.dr Discharge Medication List Divalproex ER [Depakote ER] 1,000 mg PO HS 30 Days #60 tab.er.24h 01/10/20 [Rx] Pantoprazole [Protonix] 40 mg PO HS 30 Days #30 tablet. 01/10/20 [Rx] Follow up Appointment(s)/Referral(s): Intake, Intake [Other] - 01/11/20 9:00 am Claus Jolly MD [Primary Care Provider] - 1-2 days Activity/Diet/Wound Care/Special Instructions: Activity and diet as tolerated. Avoid the use of street drugs and alcohol. Take all medications as prescribed. When you are in need of refills on your medications please contact your medical provider and/or outpatient psychiatrist to have this done. Please go to scheduled outpatient appointment for aftercare treatment. If symptoms return or become worse, call the crisis line at and/or go to the nearest emergency room for evaluation
--- NOTE | 2020-01-10 12:05 | P.DS ---
Providers Date of admission: 12/31/19 03:01 Attending physician: Edita Saldaña MD Consults: 12/31/19 03:08 Consult Physician Routine Consulting Provider: Tyree Quintero Consult Reason/Comments: For H & P for Medical Follow Up Do you want consulting provider notified?: Yes, Notify in am Primary care physician: Claus Jolly - Discharge Diagnosis(es) (1) Bipolar disorder, most recent episode hypomanic Current Visit: Yes Status: Acute Hospital Course: Course in the Hospital: The patient was very cooperative she did have continued rambling which is slowed down each day as the Depakote kicked in. Her Depakote levels were adequate was 82 just before discharge. She is alert oriented cooperative good eye contact reasonable response times daily and station normal no aggression or evidence of psychosis no delusions no illusions no hallucinations seen or no. She denies any suicidal thoughts or any homicidal thoughts and except for a little trouble with her stomach is tolerating the medicine well Vital signs her temperature is 96.9 heart rate 90 respiration 18 blood pressure 121/89 and O2 sat is 90. She was worried about her blood pressure and so was eating salt to keep it up I told her she probably did not need to do that. She has a place to go to she has counseling and people to refill her medications. I recommend that she continue with the Depakote at this level as she has difficulty tolerating other medications especially dopamine to blockers or lithium Patient Condition at Discharge: Good Plan - Discharge Summary New Discharge Prescriptions: New Divalproex ER [Depakote ER] 1,000 mg PO HS 30 Days #60 tab.er.24h Pantoprazole [Protonix] 40 mg PO HS 30 Days #30 tablet. Discharge Medication List Divalproex ER [Depakote ER] 1,000 mg PO HS 30 Days #60 tab.er.24h 01/10/20 [Rx] Pantoprazole [Protonix] 40 mg PO HS 30 Days #30 tablet. 01/10/20 [Rx] Follow up Appointment(s)/Referral(s): Intake, Intake [Other] - 01/11/20 9:00 am Claus Jolly MD [Primary Care Provider] - 1-2 days Activity/Diet/Wound Care/Special Instructions: Activity and diet as tolerated. Avoid the use of street drugs and alcohol. Take all medications as prescribed. When you are in need of refills on your medications please contact your medical provider and/or outpatient psychiatrist to have this done. Please go to scheduled outpatient appointment for aftercare treatment. If symptoms return or become worse, call the crisis line at and/or go to the nearest emergency room for evaluation
[2020-01-10 15:01] VITALS: TEMP 98.4
== END 2020-01-10 16:11 | disposition home or self-care (01) | DRG 885 ==
LOC: EC 18:58 → 3MHU 12-31 03:01
PROVIDERS: ADMIT Psychiatry & Neurology Psychiatry; ATTEND Psychiatry & Neurology Psychiatry
DX: F31.0 Bipolar disorder, current episode hypomanic (principal); F41.0 Panic disorder [episodic paroxysmal anxiety]; F43.10 Post-traumatic stress disorder, unspecified; G43.909 Migraine, unspecified, not intractable, without status migrainosus; H93.19 Tinnitus, unspecified ear; M19.91 Primary osteoarthritis, unspecified site; Z79.899 Other long term (current) drug therapy; Z87.828 Personal history of other (healed) physical injury and trauma; Z87.891 Personal history of nicotine dependence; T43.96XA Underdosing of unspecified psychotropic drug, initial encounter; Z91.128 Patient's intentional underdosing of medication regimen for other reason; Z91.19 Patient's noncompliance with other medical treatment and regimen; Z88.0 Allergy status to penicillin; Z91.040 Latex allergy status
CPT/HCPCS: 80053; 80061; 80164; 80306; 81001; 82075; 82248; 83036; 84443; 84450; 84460; 85025; 99284

== ENCOUNTER 2020-07-16 06:33 | Emergency (ER) | payer OTHER ==
[2020-07-16 06:42] VITALS: RESP 18; TEMP 98.4
[2020-07-16] MEDS ORDERED: KETOROLAC 15 MG/ML 1 ML VIAL IM STA (06:48)
--- NOTE | 2020-07-16 06:59 | ED ---
Fall HPI - General Chief Complaint: Fall Stated Complaint: Fall, Head Injury Time Seen by Provider: 07/16/20 06:47 Source: patient, family, RN notes reviewed Mode of arrival: wheelchair - History of Present Illness Initial Comments: Patient is a 58-year-old white female that presented to emergency department status post fall this morning. She noted that she got up to get a drink water became dizzy and fell and hit her face on the concrete floor. Her male partner who was with her stated that the fall was not enough that it woke him up from sleep. She noted that she is in moderate pain, her nose was bleeding and she had several cuts and lacerations to her right and forehead. She also noted some neck pain. She stated over the facial and neck pain she was in no pain or. She has not taken anything for pain yet. She did note that the medication she is on currently causes her to feel dizzy in the morning. She denied any current dizziness, lightheadedness, chest pain, shortness of breath, nausea, vomiting, fever, fatigue, chills, weakness MD Complaint: fall - Related Data Previous Rx's Medication Instructions Recorded Divalproex ER [Depakote ER] 1,000 mg PO HS 30 Days #60 01/10/20 tab.er.24h Pantoprazole [Protonix] 40 mg PO HS 30 Days #30 tablet. 01/10/20 Allergies Allergy/AdvReac Type Severity Reaction Status Date / Time latex Allergy Swelling Verified 07/16/20 06:41 Penicillins Allergy Swelling Verified 07/16/20 06:41 Review of Systems ROS Statement: Those systems with pertinent positive or pertinent negative responses have been documented in the HPI. ROS Other: All systems not noted in ROS Statement are negative. Past Medical History Additional Past Medical History / Comment(s): migraines, ddd, tinnitus, vaginal hemmorhage, back injury History of Any Multi-Drug Resistant Organisms: None Reported Past Surgical History: Section Additional Past Surgical History / Comment(s): hx of tmj, Past Anesthesia/Blood Transfusion Reactions: No Reported Reaction Past Psychological History: Anxiety, Bipolar, Depression Smoking Status: Current every day smoker Past Alcohol Use History: Rare Past Drug Use History: None Reported General Exam Limitations: no limitations General appearance: alert, in no apparent distress Head exam: Present: other (Small abrasion lateral to right eye, 3 cm laceration superior eyelid, small abrasion right lateral side of nose. Minimal ecchymosis of bridge of nose.) Eye exam: Present: normal appearance, PERRL, EOMI. Absent: scleral icterus, conjunctival injection, periorbital swelling ENT exam: Present: other (Minimal blood in nares. Bilateral nares patent) Neck exam: Present: normal inspection. Absent: tenderness, meningismus, full ROM, lymphadenopathy Respiratory exam: Present: normal lung sounds bilaterally. Absent: respiratory distress, wheezes, rales, rhonchi, stridor Cardiovascular Exam: Present: regular rate, normal rhythm, normal heart sounds. Absent: systolic murmur, diastolic murmur, rubs, gallop, clicks Extremities exam: Present: normal inspection, full ROM, normal capillary refill. Absent: tenderness, pedal edema, joint swelling, calf tenderness Neurological exam: Present: alert, oriented X3, CN II-XII intact Psychiatric exam: Present: normal affect, normal mood Skin exam: Present: warm, dry, intact, normal color. Absent: rash Course Vital Signs 07/16/20 06:39 Temperature 98.4 F Pulse Rate 76 Respiratory 18 Rate Blood Pressure 135/83 O2 Sat by Pulse 98 Oximetry Procedures - Laceration Laceration #1 Consent Obtained: verbal consent Indication: laceration Site: other (Inferior aspect of right eyebrow) Description: linear Depth: simple, single layer Anesthetic Used: lidocaine 1% Anesthesia Technique: local infiltration Pre-repair: deep structures intact Size of Sutures: 6-0 Number of Sutures: 4 Technique: simple, interrupted Patient Tolerated Procedure: well, no complications Medical Decision Making - Medical Decision Making 60-year-old white female status post fall on concrete floor. CT CT brain and neck unremarkable. Patient tolerated sutures well. - Radiology Data Radiology results: report reviewed, image reviewed CT of brain no acute intracranial process. Superficial soft tissue swelling over the right periorbital frontal region. CT of C-spine no acute osseous abnormality. Disposition Clinical Impression: Fall Disposition: HOME SELF-CARE Condition: Stable Instructions (If sedation given, give patient instructions): Fall Prevention for Older Adults (ED), Care For Your Stitches (ED), Laceration (ED) Additional Instructions: Please return to the Emergency Department if symptoms worsen or any other concerns. Told patient to alternate Motrin and Tylenol for pain as needed at home. Instructed patient to follow up with primary and saw to discuss side effects of medication such as causing dizziness. Instructed patient to use ice 20 minutes on several times a day to help reduce swelling Is patient prescribed a controlled substance at d/c from ED?: No Referrals: Sherry Simpson MD [Primary Care Provider] - 1-2 days Decision Time: 08:19
--- NOTE | 2020-07-16 07:35 | CT ---
EXAMINATION TYPE: CT brain sarah wo con DATE OF EXAM: 07/16/2020 COMPARISON: None HISTORY: fall, open wound, swelling to Rt eye CT DLP: 1316.3 mGycm, Automated exposure control for dose reduction was used. CONTRAST: Patient injected with 0 mL of Isovue 300. CT of the brain is performed utilizing 3 mm thick sections through the posterior fossa and 3 mm thick sections through the remaining calvarium. Study is performed within 24 hours of arrival to the hospital. No abnormal hyperdensity is present to suggest an acute intracranial hemorrhage. No mass lesion is evident. No acute infarcts are evident. Ventricles and sulci are appropriate for the patient age. There is some hyperostosis frontalis internus, normal variant. No acute fractures are identified. Sup erficial soft tissue swelling is over the right bridge of the nose and over the right supraorbital re gion and frontal region. No underlying fracture is evident. Paranasal sinuses and mastoid air cells within the [id number] are clear. IMPRESSIONS: 1. No acute intracranial process. 2. Superficial soft tissue swelling over the right periorbital frontal region CT cervical spine. COMPARISON: None CT of the cervical spine is performed in the axial plane at 2 mm thick sections. Reconstructed image s in the coronal, and sagittal plane are reviewed on the computer. No acute fractures are evident. Vertebral body alignment is normal. Mild disc space narrowing C4-5 C5-6 may be present. Vertebral body heights are preserved. No spinal canal stenosis is evident. No neural foraminal stenosis is evident. Some very mild facet hypertrophy is present. IMPRESSIONS: 1. No acute osseous abnormality cervical spine
[2020-07-16] MEDS ORDERED: LIDOCAINE 1% INJ 10MG/ML (20 ML MDV) SQ ONE (07:37)
[2020-07-16 09:08] VITALS: BP 109/64; PULSE 83
== END 2020-07-16 09:06 | disposition home or self-care (01) ==
LOC: EC 06:33 → EEVIPCON 06:33 → EC 09:06
DX: S01.111A Laceration without foreign body of right eyelid and periocular area, initial encounter (principal); F17.200 Nicotine dependence, unspecified, uncomplicated; Z91.040 Latex allergy status; Z88.0 Allergy status to penicillin; W01.198A Fall on same level from slipping, tripping and stumbling with subsequent striking against other object, initial encounter; Y93.01 Activity, walking, marching and hiking; Y92.89 Other specified places as the place of occurrence of the external cause
CPT/HCPCS: 72125; 70450; 99283; 12013; 96372; J2001; J1885

== ENCOUNTER 2023-08-31 22:13 | Emergency (ER) | payer OTHER, MEDICARE ==
[2023-08-31 22:59] VITALS: TEMP 97.9
[2023-08-31] MEDS: LIDOCAINE 1% INJ 10MG/ML (20 ML MDV) SQ ONE (23:03)
--- NOTE | 2023-08-31 23:25 | ED ---
Wound/Laceration HPI - General Chief Complaint: Wound/Laceration Stated Complaint: left finger injury Time Seen by Provider: 08/31/23 22:50 Source: patient Mode of arrival: ambulatory Limitations: no limitations - History of Present Illness Initial Comments: 63-year-old female presenting with chief complaint of laceration. Patient was doing dishes this evening when she cut her left pointer finger on a broken dish. She has a 1 cm laceration to the dorsal surface of the finger. Bleeding is well-controlled at this time. Last tetanus shot was less than 7 years ago. She has full range of motion and sensation. - Related Data Previous Rx's Medication Instructions Recorded Divalproex ER [Depakote ER] 1,000 mg PO HS 30 Days #60 01/10/20 tab.er.24h Pantoprazole [Protonix] 40 mg PO HS 30 Days #30 tablet. 01/10/20 Allergies Allergy/AdvReac Type Severity Reaction Status Date / Time latex Allergy Swelling Verified 07/16/20 06:41 Penicillins Allergy Swelling Verified 07/16/20 06:41 tree and shrub pollen Allergy Unknown Verified 08/31/23 22:28 dust Allergy Unknown Uncoded 08/31/23 22:28 Review of Systems ROS Statement: Those systems with pertinent positive or pertinent negative responses have been documented in the HPI. ROS Other: All systems not noted in ROS Statement are negative. Past Medical History Additional Past Medical History / Comment(s): migraines, ddd, tinnitus, vaginal hemmorhage, back injury History of Any Multi-Drug Resistant Organisms: None Reported Past Surgical History: Section Additional Past Surgical History / Comment(s): hx of tmj, Past Anesthesia/Blood Transfusion Reactions: No Reported Reaction Past Psychological History: Anxiety, Bipolar, Depression Smoking Status: Current every day smoker Past Alcohol Use History: Rare Past Drug Use History: None Reported General Exam Limitations: no limitations General appearance: alert, in no apparent distress Head exam: Present: atraumatic, normocephalic Eye exam: Present: normal appearance Neck exam: Present: normal inspection Respiratory exam: Absent: respiratory distress Cardiovascular Exam: Present: regular rate Left Hand Wrist exam: Present: full ROM, laceration (1 cm laceration to the dorsal surface of the left pointer finger). Absent: swelling, deformity Neurological exam: Present: alert, oriented X3 Psychiatric exam: Present: normal affect, normal mood Course Vital Signs 03/10/24 22:23 Temperature 97.9 F Pulse Rate 72 Respiratory 18 Rate Blood Pressure 138/85 O2 Sat by Pulse 98 Oximetry Procedures - Laceration Laceration #1 Consent Obtained: verbal consent Indication: laceration Site: hand (L 1st digit) Size (cm): 1 Description: linear Depth: simple, single layer Anesthetic Used: lidocaine 1%, without epi Pre-repair: wound explored, irrigated extensively Type of Sutures: nylon Size of Sutures: 4-0 Number of Sutures: 2 Technique: simple, interrupted Patient Tolerated Procedure: well, no complications Medical Decision Making - Medical Decision Making Was pt. sent in by a medical professional or institution (, [facility], [facility] [employer], urgent care, hospital, or care home...) When possible be specific @ -No Did you speak to anyone other than the patient for history (EMS, parent, family, police, friend...)? What history was obtained from this source @ -No Did you review nursing and triage notes (agree or disagree)? Why? @ -I reviewed and agree with nursing and triage notes Were old charts reviewed (outside hosp., previous admission, EMS record, old EKG, old radiological studies, urgent care reports/EKG's, care home records)? Report findings @ -No old charts were reviewed Differential Diagnosis (chest pain, altered mental status, abdominal pain women, abdominal pain men, vaginal bleeding, weakness, fever, dyspnea, syncope, headache, dizziness, GI bleed, back pain, seizure, CVA, palpatations, mental health, musculoskeletal)? @ -Not applicable EKG interpreted by me (3pts min.). @ -As above X-rays interpreted by me (1pt min.). @ -None done CT interpreted by me (1pt min.). @ -None done U/S interpreted by me (1pt. min.). @ -None done What testing was considered but not performed or refused? (CT, X-rays, U/S, labs)? Why? @ -None What meds were considered but not given or refused? Why? @ -None Did you discuss the management of the patient with other professionals (professionals i.e. , [facility], [facility] [employer], lab, RT, psych nurse, 7th grade social studies teacher, neon sign mechanic, teacher, unarmed security officer, case therapist)? Give summary @ -No Was smoking cessation discussed for >3mins.? @ -No Was critical care preformed (if so, how long)? @ -No Were there social determinants of health that impacted care today? How? (Homelessness, low income, unemployed, alcoholism, drug addiction, transportation, low edu. Level, literacy, decrease access to med. care, custodial, rehab)? @ -No Was there de-escalation of care discussed even if they declined (Discuss DNR or withdrawal of care, Hospice)? DNR status @ -No What co-morbidities impacted this encounter? (DM, HTN, Smoking, COPD, CAD, Cancer, CVA, ARF, Chemo, Hep., AIDS, mental health diagnosis, sleep apnea, morbid obesity)? @ -None Was patient admitted / discharged? Hospital course, mention meds given and route, prescriptions, significant lab abnormalities, going to OR and other pertinent info. @ -63-year-old female presenting with chief complaint of laceration to the left pointer finger. 1 cm laceration to the dorsal surface of the left pointer finger. She has full range of motion. Laceration is cleansed and repaired, see procedure note for details. Her tetanus is up-to-date. Discharged home. Follow-up with PCP. Report back to ER with any new or worsening symptoms. Discussed return parameters and answered all questions. Patient conveyed verbal understanding and agreed to the plan. I discussed this case in detail with my attending Dr. Vela Undiagnosed new problem with uncertain prognosis? @ -No Drug Therapy requiring intensive monitoring for toxicity (Heparin, Nitro, Insulin, Cardizem)? @ -No Were any procedures done? @ -Laceration repair Diagnosis/symptom? @ -Laceration Acute, or Chronic, or Acute on Chronic? @ -Acute Uncomplicated (without systemic symptoms) or Complicated (systemic symptoms)? @ -Uncomplicated Side effects of treatment? @ -No Exacerbation, Progression, or Severe Exacerbation? @ -No Poses a threat to life or bodily function? How? (Chest pain, USA, PA, pneumonia, PE, COPD, DKA, ARF, appy, cholecystitis, CVA, Diverticulitis, Homicidal, Suicidal, threat to staff... and all critical care pts) @ -No Disposition Clinical Impression: Laceration Disposition: HOME SELF-CARE Condition: Good Instructions (If sedation given, give patient instructions): Care For Your Stitches (ED), Finger Laceration (ED) Additional Instructions: Follow-up with PCP. Report back to ER with any new or worsening symptoms. Keep the wound clean dry and covered. Wash regularly with soap and water. Avoid fully submerging the wound in water for prolonged periods of time. Monitor for signs of infection, including but not limited to redness, swelling, warmth, tenderness, discharge, fever. Sutures may be removed in 10 to 14 days. Is patient prescribed a controlled substance at d/c from ED?: No Referrals: Sherry Simpson MD [Primary Care Provider] - 1-2 days Time of Disposition: 23:25
[2023-08-31] MEDS: BACITRACIN OINT 1 EACH PACKET TOPICAL ONE (23:34)
[2023-09-01 00:09] VITALS: BP 137/75; PULSE 71; RESP 16
== END 2023-09-01 02:11 | disposition home or self-care (01) ==
LOC: EC 22:13 → EEVIPCON 22:13 → EC 09-01 02:11
DX: S61.211A Laceration without foreign body of left index finger without damage to nail, initial encounter (principal); Z88.0 Allergy status to penicillin; Z91.040 Latex allergy status; Z91.018 Allergy to other foods; Z86.59 Personal history of other mental and behavioral disorders; W26.8XXA Contact with other sharp object(s), not elsewhere classified, initial encounter
CPT/HCPCS: 12001; 99283; J2001

== ENCOUNTER 2024-02-13 07:51 | Emergency (ER) | payer MEDICARE, OTHER ==
[2024-02-13] MEDS ORDERED: LIDOCAINE 2% INJ 20 MG/ML (20 ML MDV) ONE (08:25)
== END 2024-02-13 09:07 | disposition home or self-care (01) ==
LOC: EC 07:51
CPT/HCPCS: 99282

== ENCOUNTER → 2024-05-13 | Outpatient (CLI) | payer MEDICARE, OTHER ==
[2024-05-13 16:03] LABS: Basophils # (A) 0.06 X 10*3/uL (0.00-0.10); Eosinophils # (A) 0.17 X 10*3/uL (0.04-0.35); Eosinophils % (A) 2.9 %; HCT 42.5 % (37.2-46.3); HGB 13.9 g/dL (12.0-15.0); Lymphocytes # (A) 1.73 X 10*3/uL (0.90-5.00); Lymphocytes % (A) 29.4 %; MCH 30.2 pg (27.0-32.0); MCHC 32.7 g/dL (32.0-37.0); MCV 92.2 FL (80.0-97.0); Mean Platelet Volume 11.2 FL (9.5-12.2); Monocytes # (A) 0.59 X 10*3/uL (0.20-1.00); NRBC Per 100 WBC 0 X 10*3/uL (0.00-0.01); Neutrophils # (A) 3.32 X 10*3/uL (1.80-7.70); Neutrophils % (A) 56.4 %; Platelet Count 310 X 10*3/uL (140-440); RBC 4.61 X 10*6/uL (4.10-5.20); RDW 13.2 % (11.5-14.5); WBC 5.89 X 10*3/uL (4.50-10.00)
[2024-05-13 16:14] LABS: % Iron Saturation 27.99 (12.00-45.00); ALT 17 U/L (8-44); AST 18 U/L (13-35); Albumin 4.5 g/dL (3.8-4.9); Albumin/Globulin Ratio 2.05 Ratio (1.60-3.17); Alkaline Phosphatase 87 U/L (41-126); BUN/Creat Ratio 22.75 Ratio (12.00-20.00); Blood Urea Nitrogen 18.2 mg/dL (9.0-27.0); Calcium 9.4 mg/dL (8.7-10.3); Carbon Dioxide 24.2 mmol/L (21.6-31.8); Chloride 106 mmol/L (96-109); Chol/HDL Ratio 5.13 Ratio; Globulin 2.2 g/dL (1.6-3.3); Glucose 97 mg/dL (70-110); Iron 103 UG/DL (50-170); LDL Cholesterol,Calculated 219.3 mg/dL (0.0-131.0); Potassium 4.2 mmol/L (3.5-5.5); Sodium 141 mmol/L (135-145); Total Bilirubin 0.4 mg/dL (0.3-1.2); Total Iron Binding Capacity 368 UG/DL (228-460); Total Protein 6.7 g/dL (6.2-8.2)
== END | disposition home or self-care (01) ==
LOC: LABWHC1 10:37
PROVIDERS: ATTEND Family Medicine
DX: E78.2 Mixed hyperlipidemia (principal); E55.9 Vitamin D deficiency, unspecified; F32.A Depression, unspecified
CPT/HCPCS: 36415; 80053; 80061; 82306; 82607; 82728; 82746; 83036; 83540; 83550; 84443; 85025